=== PATIENT | female | born 1940 | race Caucasian/White ===

== ENCOUNTER 2019-08-21 11:10 | Outpatient (CLI) | payer MEDICARE, OTHER, SELFPAY ==
--- NOTE | ~2019-08-21 | XR_ITS ---
EXAMINATION: XR chest 2V EXAM DATE: 08/21/2019 11:34 INDICATION: Pneumonia. TECHNIQUE: Frontal and lateral projections of the chest obtained and reviewed. Comparison is made to prior examination from 08/05/2019. FINDINGS: There is interval improvement in the right upper lobe airspace disease, now has some resid ual linear opacities most likely atelectasis. Consider additional one-month follow-up chest x-ray. Th ere is chronic severe hyperinflation. There is no pneumothorax suspected. There are no pleural effusi ons. Cardiomediastinal silhouette is normal. Suspicion of right rotator cuff calcific tendinosis. Pro minent right anterior epicardial fat pad. IMPRESSION: 1. Improving right upper lobe airspace disease with some residual linear opacities likely atelectasi s. Consider additional one-month follow-up chest x-ray. 2. Chronic hyperinflation. Reviewed, dictated and finalized at location B. ERIOLOGY TEACHER IMPRESSION: 1. Improving right upper lobe airspace disease with some residual linear opaci ties likely atelectasis. Consider additional one-month follow-up chest x-ray. 2. Chronic hyperinflation.
== END 2019-08-21 11:11 | disposition home or self-care (01) ==
LOC: ANHIMG 11:19
PROVIDERS: PCP Family Medicine; Visit Provider Nurse Practitioner
DX: J18.9 Pneumonia, unspecified organism (principal); R91.8 Other nonspecific abnormal finding of lung field
CPT/HCPCS: 71046

== ENCOUNTER 2019-08-28 10:04 | Outpatient (CLI) | payer MEDICARE, OTHER, SELFPAY ==
[2019-08-28 10:41] LABS: CRP < 0.5 mg/dL (<1.0)
[2019-08-28 12:50] LABS: Erythrocyte Sedimentation Rate 19 mm/hr (0-20)
== END 2019-08-28 10:05 | disposition home or self-care (01) ==
PROVIDERS: PCP Family Medicine
DX: M35.3 Polymyalgia rheumatica (principal)
CPT/HCPCS: 36415; 85652; 86140

== ENCOUNTER 2019-09-04 09:20 | Outpatient (CLI) | payer MEDICARE, OTHER, SELFPAY ==
--- NOTE | ~2019-09-04 | MM_ITS ---
EXAMINATION: MM screening tere BI w maxime HISTORY: Screening mammogram TECHNIQUE: Craniocaudal and mediolateral oblique 3-D tomosynthesis images were obtained and synthetic 2-D images were generated. CAD analysis was submitted and interpreted. COMPARISON: Comparison to multiple prior studies sequentially, with oldest reviewed study dated 01/02. BREAST PARENCHYMAL COMPOSITION: The breasts are heterogenously dense, which may obscure small masses FINDINGS: The right breast is stable without evidence for malignancy. There is a new mass in the uppe r outer quadrant of the left breast. IMPRESSION: 1. New left breast mass. 2. Additional mammographic views and possible breast ultrasound are recommended. BI-RADS Category 0: Incomplete: Needs additional imaging evaluation. Reviewed, dictated and finalized at location A. R INCIDENT RESPONDER IMPRESSION: 1. New left breast mass. 2. Additional mammographic views and possible breast ultrasound are recommended . BI-RADS Category 0: Incomplete: Needs additional imaging evaluation.
== END 2019-09-04 09:21 | disposition home or self-care (01) ==
LOC: ANHIMG 09:23
PROVIDERS: PCP Family Medicine; Visit Provider Family Medicine
DX: Z12.31 Encounter for screening mammogram for malignant neoplasm of breast (principal); R92.8 Other abnormal and inconclusive findings on diagnostic imaging of breast
CPT/HCPCS: 77063; 77067

== ENCOUNTER 2019-09-18 08:04 | Outpatient (CLI) | payer MEDICARE, OTHER, SELFPAY ==
--- NOTE | ~2019-09-18 | XR_ITS ---
EXAMINATION: XR chest 2V 09/18/2019 08:22 INDICATION: Dyspnea. PROCEDURE: 2 view chest COMPARISON: 08/21/2019 FINDINGS: The lungs are clear. The cardiomediastinal silhouette is within normal limits. There are no pleural effusions. There is no pneumothorax suspected. IMPRESSION: 1: NO ACUTE CARDIOPULMONARY DISEASE. Reviewed, dictated and finalized at location A.
== END 2019-09-18 08:05 | disposition home or self-care (01) ==
PROVIDERS: PCP Family Medicine; Visit Provider Family Medicine
DX: R93.89 Abnormal findings on diagnostic imaging of other specified body structures (principal)
CPT/HCPCS: 71046

== ENCOUNTER 2019-10-02 11:30 | Outpatient (CLI) | payer MEDICARE, OTHER, SELFPAY ==
--- NOTE | ~2019-10-02 | MMUS_ITS ---
EXAMINATION: MM diagnostic mammo unilat LT, US breast LT limited HISTORY: Left breast mass reported on 09/04/2019 screening mammogram TECHNIQUE: Additional 3-D tomosynthesis images of the left breast were performed and synthetic 2-D im ages were generated. CAD analysis was submitted and interpreted. High resolution upper outer and lowe r-outer left breast ultrasound was performed. COMPARISON: 09/04/2019 bilateral digital screening mammogram FINDINGS: MAMMOGRAPHIC FINDINGS: There is an approximately 2 cm area of ill-defined asymmetric increased density and suggestion of ass ociated architectural distortion in the posterior aspect of the mid to upper outer left breast. ULTRASOUND: At 2:00 location 7 cm from nipple, there is a very irregular antiparallel at least 2.4 cm transverse dimension and 2.8 cm depth heterogeneous solid mass with internal vascularity, highly suggestive of m alignancy. The lesion has an apple core configuration, with broad margins superficially and at depth, with narrower dimensions centrally. Ultrasound-guided biopsy is recommended. IMPRESSION: 1. At least 2.4 x 2.8 cm heterogeneous irregular solid mass with internal vascularity at 2:00 7 cm fr om nipple, highly suggestive of malignancy 2. Ultrasound-guided biopsy is recommended. BI-RADS category 5, highly suggestive of malignancy. Appropriate action should be taken Dr. Bowles left a voicemail message for Systems Manager Cate Avery indicating the BIRADS 5 repo rt and recommendation for ultrasound guided biopsy of the left breast on 10/02/2019 at 1307 hours. Reviewed, dictated and finalized at location A. IMPRESSION: 1. At least 2.4 x 2.8 cm heterogeneous irregular solid mass with internal vascu larity at 2:00 7 cm from nipple, highly suggestive of malignancy 2. Ultrasound-guided biopsy is recommended. BI-RADS category 5, highly suggestive of malignancy. Appropriate action should be taken Dr. Bowles left a voicemail message for Systems Manager Cate crawford ting the BIRADS 5 report and recommendation for ultrasound guided biopsy of the left breast on 10/02/2019 at 1307 hours. IMPRESSION: 1. At least 2.4 x 2.8 cm heterogeneous irregular solid mass with internal vascu larity at 2:00 7 cm from nipple, highly suggestive of malignancy 2. Ultrasound-guided biopsy is recommended. BI-RADS category 5, highly suggestive of malignancy. Appropriate action should be taken Dr. Bowles left a voicemail message for Systems Manager Cate crawford tinpino the BIRADS 5 report and recommendation for ultrasound guided biopsy of the left breast on 10/02/2019 at 1307 hours.
== END 2019-10-02 11:31 | disposition home or self-care (01) ==
LOC: ANHIMG 11:44
PROVIDERS: PCP Family Medicine; Visit Provider Family Medicine
DX: R92.8 Other abnormal and inconclusive findings on diagnostic imaging of breast (principal)
CPT/HCPCS: 76642; 77065

== ENCOUNTER 2019-10-11 09:16 | Outpatient (CLI) | payer MEDICARE, OTHER, SELFPAY ==
--- NOTE | ~2019-10-11 | MMUS_ITS ---
EXAMINATION: US breast biopsy LT w image, MM post biopsy invasive LT DATE: 10/11/2019 11:46 (accession [id number]), 10/11/2019 10:53 (accession [id number]) INDICATION: Left breast mass. Ultrasound-guided core biopsy is requested to evaluate for malignancy. TECHNIQUE AND FINDINGS: The risks and potential benefits of the procedure were discussed with the patient including bleeding and infection. A time out was performed. The skin of the left breast was prepared and draped in usual sterile fashion. 1% lidocaine was used for superficial anesthesia. 1% lidocaine with epinephrine was used for deep anesthesia. A vacuum-assisted biopsy gun needle was advanced through to the outer edge of the region of interest from a lateral approach utilizing sonographic guidance. A total of three tissue core samples were obt ained through the lesion. A tissue marker clip was then placed at the biopsy site. Hemostasis was ach ieved. A sterile bandage was applied. The patient tolerated procedure well and there was no evidence of immediate complication. The patient was given verbal instructions to return to the Emergency Department in the event of severe breast pa in or rapid breast enlargement. A two view left breast mammogram was obtained to document tissue coty er clip placement. IMPRESSION: 1. Successful ultrasound-guided vacuum-assisted biopsy of left breast mass with tissue marker placeme nt. Reviewed, dictated and finalized at location A. IMPRESSION: 1. Successful ultrasound-guided vacuum-assisted biopsy of left breast mass with tissue marker placement.
== END 2019-10-11 09:17 | disposition home or self-care (01) ==
PROVIDERS: PCP Family Medicine; Visit Provider Nurse Practitioner
DX: N63.22 Unspecified lump in the left breast, upper inner quadrant (principal); C50.912 Malignant neoplasm of unspecified site of left female breast
CPT/HCPCS: 19083; 88305; 88342

== ENCOUNTER 2020-05-08 16:07 | Outpatient (CLI) | payer MEDICARE, OTHER, SELFPAY ==
--- NOTE | ~2020-05-08 | XR_ITS ---
EXAMINATION: XR shoulder RT min 2V DATE: 05/08/2020 16:38 INDICATION: Right shoulder pain. TECHNIQUE: 5 views of right shoulder were obtained. COMPARISON: None. FINDINGS: Bone alignment is normal. No fracture. There is mild osteoarthritis of glenohumeral joint. The acromioclavicular joint is normal. There is calcific tendinitis of the rotator cuff. IMPRESSION: 1. Mild glenohumeral joint osteoarthritis. 2. Calcific tendinitis of the rotator cuff. Reviewed, dictated and finalized at location A.
== END 2020-05-08 16:08 | disposition home or self-care (01) ==
PROVIDERS: PCP Family Medicine
DX: M25.511 Pain in right shoulder (principal); M19.011 Primary osteoarthritis, right shoulder; M75.31 Calcific tendinitis of right shoulder
CPT/HCPCS: 73030

== ENCOUNTER 2020-08-01 10:43 | Outpatient (CLI) | payer MEDICARE, OTHER, SELFPAY ==
[2020-08-01 11:16] LABS: Basophils Percent Auto 0.6 % (0.2-1.2); Eosinophils Absolute Auto 0.2 K/mm3 (0-0.3); Eosinophils Percent Auto 2.8 % (0-4.4); Hematocrit 41.1 % (37.0-47.0); Hemoglobin 13.3 g/dL (12.0-15.0); Immature Granulocyte Absolute 0.02 K/mm3 (0.00-0.031); Immature Granulocyte Percent A 0.3 % (0-0.5); Lymphocytes Absolute Auto 1.59 K/mm3 (0.9-3.2); Lymphocytes Percent Auto 23.8 % (18.3-44.2); Mean Corpuscular HGB Conc 32.4 g/dl (32-36); Mean Corpuscular Volume 92.8 fl (80-100); Mean Platelet Volume 10.1 fl (7.4-10.4); Monocytes Absolute Auto 0.6 K/mm3 (0.1-0.6); Monocytes Percent Auto 8.7 % (2.6-8.5); Neutrophils Absolute Auto 4.3 K/mm3 (1.3-6.7); Neutrophils Percent Auto 63.8 % (45.5-73.1); Platelet Count Result 237 k/mm3 (150-375); Red Blood Count 4.43 M/mm3 (4.2-5.4); Red Cell Distribution Width 12.7 % (11.5-14.5); White Blood Count 6.7 K/mm3 (4.5-10.0)
[2020-08-01 11:24] LABS: Hemoglobin A1C 5.6 % (<5.7)
[2020-08-01 11:28] LABS: Alanine Aminotransferase 21 U/L (4-35); Albumin Level 4.2 g/dL (3.5-5.1); Alkaline Phosphatase 66 U/L (38-126); Anion Gap 2 mmol/L (8-16); Aspartate Amino Transferase 27 U/L (14-36); Bilirubin,Total 0.3 mg/dL (0.2-1.3); Blood Urea Nitrogen 17 mg/dL (7-17); Calcium 9.5 mg/dL (8.4-10.2); Carbon Dioxide 35 mmol/L (22-30); Chloride 103 mmol/L (98-107); Cholesterol 207 mg/dL (0-200); Estimated Glomerular Filt Rate > 60; Glucose 108 mg/dL (65-105); HDL Direct 85 mg/dL; Potassium 5.6 mmol/L (3.4-5.0); Sodium 140 mmol/L (137-145); Triglycerides 134 mg/dL (<150)
[2020-08-01 11:40] LABS: LDL Cholesterol Direct 93 mg/dL
[2020-08-01 12:09] LABS: Vitamin D 25 Hydroxy 46.2 ng/mL
[2020-08-01 12:22] LABS: Thyroid Stimulating Hormone Reflex 0.025 uIU/mL (0.465-4.68)
[2020-08-01 13:15] LABS: Free T4 Free Thyroxine Reflex 1.15 ng/dL (0.78-2.19)
[2020-08-01 14:18] LABS: Total Triiodothyronine (T3) 1.29 NG/ML (0.97-1.69)
== END 2020-08-01 10:44 | disposition home or self-care (01) ==
LOC: ANHLAB 10:45
PROVIDERS: PCP Family Medicine; Visit Provider Nurse Practitioner
DX: E78.00 Pure hypercholesterolemia, unspecified (principal); R73.9 Hyperglycemia, unspecified; E78.2 Mixed hyperlipidemia; E78.5 Hyperlipidemia, unspecified; E53.8 Deficiency of other specified B group vitamins; E03.9 Hypothyroidism, unspecified; E55.9 Vitamin D deficiency, unspecified
CPT/HCPCS: 36415; 80053; 80061; 82306; 82607; 83036; 84439; 84443; 84480; 85025

== ENCOUNTER 2020-10-30 09:35 | Outpatient (CLI) | payer MEDICARE, OTHER, SELFPAY ==
[2020-10-30 09:55] LABS: Potassium 4.1 mmol/L (3.4-5.0)
[2020-10-30 10:55] LABS: Thyroid Stimulating Hormone Reflex < 0.015 uIU/mL (0.465-4.68)
[2020-10-30 11:29] LABS: Free T4 Free Thyroxine Reflex 1.36 ng/dL (0.78-2.19)
[2020-10-30 12:29] LABS: Total Triiodothyronine (T3) 1.46 NG/ML (0.97-1.69)
== END 2020-10-30 09:36 | disposition home or self-care (01) ==
LOC: ANHLAB 09:38
PROVIDERS: PCP Family Medicine; Visit Provider Nurse Practitioner
DX: E87.5 Hyperkalemia (principal); E03.9 Hypothyroidism, unspecified
CPT/HCPCS: 36415; 84132; 84439; 84443; 84480

== ENCOUNTER 2020-12-12 09:03 | Outpatient (CLI) | payer MEDICARE, OTHER, SELFPAY ==
[2020-12-12 10:08] LABS: CRP 1.9 mg/dL (<1.0)
[2020-12-12 10:23] LABS: T4 Thyroxine 7.59 ug/dL (5.53-11.0)
[2020-12-12 11:02] LABS: Erythrocyte Sedimentation Rate 49 mm/hr (0-20)
[2020-12-15 08:46] LABS: Triiodothyronine T3 Free 2.3 pg/mL (2.3-4.2)
== END 2020-12-12 09:04 | disposition home or self-care (01) ==
PROVIDERS: PCP Family Medicine; Referring Provider Internal Medicine; Visit Provider Nurse Practitioner
DX: E03.9 Hypothyroidism, unspecified (principal); M35.3 Polymyalgia rheumatica
CPT/HCPCS: 36415; 84436; 84443; 84481; 85652; 86140

== ENCOUNTER 2021-09-08 07:14 | Outpatient (CLI) | payer MEDICARE, OTHER, SELFPAY ==
[2021-09-08 07:42] LABS: Basophils Percent Auto 0.4 % (0.2-1.2); Eosinophils Absolute Auto 0.1 K/mm3 (0-0.3); Eosinophils Percent Auto 1.3 % (0-4.4); Hematocrit 41.3 % (37.0-47.0); Hemoglobin 13.4 g/dL (12.0-15.0); Immature Granulocyte Absolute 0.01 K/mm3 (0.00-0.031); Immature Granulocyte Percent A 0.1 % (0-0.5); Lymphocytes Absolute Auto 1.83 K/mm3 (0.9-3.2); Lymphocytes Percent Auto 26.4 % (18.3-44.2); Mean Corpuscular HGB Conc 32.4 g/dl (32-36); Mean Corpuscular Hemoglobin 29.6 pg (26-34); Mean Corpuscular Volume 91.2 fl (80-100); Mean Platelet Volume 9.8 fl (7.4-10.4); Monocytes Absolute Auto 0.6 K/mm3 (0.1-0.6); Monocytes Percent Auto 8.9 % (2.6-8.5); Neutrophils Absolute Auto 4.4 K/mm3 (1.3-6.7); Neutrophils Percent Auto 62.9 % (45.5-73.1); Platelet Count Result 216 k/mm3 (150-375); Red Blood Count 4.53 M/mm3 (4.2-5.4); Red Cell Distribution Width 12.8 % (11.5-14.5); White Blood Count 6.9 K/mm3 (4.5-10.0)
[2021-09-08 07:52] LABS: Alanine Aminotransferase 18 U/L (4-35); Albumin Level 4.4 g/dL (3.5-5.1); Alkaline Phosphatase 79 U/L (38-126); Anion Gap 5 mmol/L (8-16); Aspartate Amino Transferase 27 U/L (14-36); Bilirubin,Total 0.6 mg/dL (0.2-1.3); Blood Urea Nitrogen 22 mg/dL (7-17); Calcium 8.9 mg/dL (8.4-10.2); Carbon Dioxide 33 mmol/L (22-30); Chloride 103 mmol/L (98-107); Cholesterol 249 mg/dL (0-200); Estimated Glomerular Filt Rate > 60; Glucose 107 mg/dL (65-110); HDL Direct 84 mg/dL; Potassium 4.3 mmol/L (3.4-5.0); Sodium 141 mmol/L (137-145); Triglycerides 69 mg/dL (<150)
[2021-09-08 08:02] LABS: LDL Cholesterol Direct 104 mg/dL
[2021-09-08 08:08] LABS: Vitamin D 25 Hydroxy 53.7 ng/mL
[2021-09-08 09:11] LABS: Free T4 Free Thyroxine Reflex 1.05 ng/dL (0.78-2.19)
== END 2021-09-08 07:15 | disposition home or self-care (01) ==
PROVIDERS: PCP Family Medicine; Visit Provider Nurse Practitioner
DX: E78.2 Mixed hyperlipidemia (principal); E55.9 Vitamin D deficiency, unspecified; E03.9 Hypothyroidism, unspecified
CPT/HCPCS: 36415; 80053; 80061; 82306; 84439; 84443; 84480; 85025

== ENCOUNTER 2021-11-24 11:32 | Outpatient (CLI) | payer MEDICARE, OTHER, SELFPAY ==
[2021-11-24 13:54] LABS: Free T4 Free Thyroxine Reflex 1.23 ng/dL (0.78-2.19)
[2021-11-24 14:46] LABS: Total Triiodothyronine (T3) 1.49 NG/ML (0.97-1.69)
== END 2021-11-24 11:33 | disposition home or self-care (01) ==
LOC: ANHLAB 11:35
PROVIDERS: PCP Family Medicine; Visit Provider Nurse Practitioner
DX: E03.9 Hypothyroidism, unspecified (principal)
CPT/HCPCS: 36415; 84439; 84443; 84480

== ENCOUNTER → 2022-03-06 11:17 | Outpatient (CLI) | payer MEDICARE, OTHER, SELFPAY ==
--- NOTE | ~2022-03-06 | US_ITS ---
EXAMINATION: US thyroid DATE: 03/06/2022 11:42 INDICATION: Nontoxic goiter TECHNIQUE: Multiple ultrasound images of the thyroid were obtained. COMPARISON: None. FINDINGS: The right thyroid lobe measures 2.6 x 0.7 x 0.7 cm. The left thyroid lobe measures 1.4 x 0.6 x 0.7 c m. Thyroid isthmus measures 2 mm in thickness. No discrete nodules identified. There is diffuse heter ogeneous increased echogenicity and coarsened echotexture throughout the thyroid. IMPRESSION: 1. Small diffusely heterogeneous and coarsely echogenic thyroid likely sequela of chronic thyroiditis . Reviewed, dictated and finalized at location A. IMPRESSION: 1. Small diffusely heterogeneous and coarsely echogenic thyroid likely sequela of chronic thyroiditis.
== END ==
PROVIDERS: PCP Family Medicine; Visit Provider Nurse Practitioner
DX: E04.9 Nontoxic goiter, unspecified (principal)
CPT/HCPCS: 76536

== ENCOUNTER 2022-03-06 11:45 | Outpatient (CLI) | payer MEDICARE, OTHER, SELFPAY ==
[2022-03-06 12:20] LABS: Alanine Aminotransferase 14 U/L (6-35); Albumin Level 4.4 g/dL (3.5-5.1); Alkaline Phosphatase 75 U/L (38-126); Anion Gap 5 mmol/L (8-16); Aspartate Amino Transferase 22 U/L (14-36); Bilirubin,Total 0.4 mg/dL (0.2-1.3); Blood Urea Nitrogen 23 mg/dL (7-17); Calcium 9.2 mg/dL (8.4-10.2); Carbon Dioxide 33 mmol/L (22-30); Chloride 99 mmol/L (98-107); Cholesterol 206 mg/dL (0-200); Estimated Glomerular Filt Rate > 60; Glucose 82 mg/dL (65-110); HDL Direct 92 mg/dL; Potassium 4.2 mmol/L (3.4-5.0); Sodium 137 mmol/L (137-145); Triglycerides 66 mg/dL (<150)
[2022-03-06 12:24] LABS: Basophils Absolute Auto 0.1 K/mm3 (0.0-0.1); Basophils Percent Auto 0.9 % (0.2-1.2); Eosinophils Absolute Auto 0.2 K/mm3 (0-0.3); Eosinophils Percent Auto 3.4 % (0-4.4); Hemoglobin 12.6 g/dL (12.0-15.0); Immature Granulocyte Absolute 0.01 K/mm3 (0.00-0.031); Immature Granulocyte Percent A 0.2 % (0-0.5); Lymphocytes Absolute Auto 1.64 K/mm3 (0.9-3.2); Lymphocytes Percent Auto 29.5 % (18.3-44.2); Mean Corpuscular HGB Conc 31.5 g/dl (32-36); Mean Corpuscular Hemoglobin 29.3 pg (26-34); Mean Platelet Volume 10.2 fl (7.4-10.4); Monocytes Absolute Auto 0.6 K/mm3 (0.1-0.6); Monocytes Percent Auto 11.2 % (2.6-8.5); Neutrophils Absolute Auto 3.1 K/mm3 (1.3-6.7); Neutrophils Percent Auto 54.8 % (45.5-73.1); Platelet Count Result 221 k/mm3 (150-375); Red Cell Distribution Width 12.5 % (11.5-14.5); White Blood Count 5.6 K/mm3 (4.5-10.0)
[2022-03-06 12:27] LABS: LDL Cholesterol Direct 76 mg/dL
[2022-03-06 12:39] LABS: Vitamin D 25 Hydroxy 49.6 ng/mL
[2022-03-06 12:52] LABS: Thyroid Stimulating Hormone Reflex 0.076 uIU/mL (0.465-4.68)
[2022-03-06 15:39] LABS: Free T4 Free Thyroxine Reflex 1.38 ng/dL (0.78-2.19)
[2022-03-06 17:49] LABS: Total Triiodothyronine (T3) 1.47 NG/ML (0.97-1.69)
== END 2022-03-06 11:46 | disposition home or self-care (01) ==
LOC: ANHLAB 11:47
PROVIDERS: PCP Family Medicine; Visit Provider Nurse Practitioner
DX: E55.9 Vitamin D deficiency, unspecified (principal); E03.9 Hypothyroidism, unspecified; E78.2 Mixed hyperlipidemia
CPT/HCPCS: 36415; 80053; 80061; 82306; 84439; 84443; 84480; 85025

== ENCOUNTER 2022-05-07 11:40 | Outpatient (CLI) | payer MEDICARE, OTHER, SELFPAY ==
[2022-05-07 12:54] LABS: Thyroid Stimulating Hormone Reflex 0.858 uIU/mL (0.465-4.68)
== END 2022-05-07 11:41 | disposition home or self-care (01) ==
LOC: ANHLAB 11:40
PROVIDERS: PCP Family Medicine; Visit Provider Nurse Practitioner
DX: E03.9 Hypothyroidism, unspecified (principal)
CPT/HCPCS: 36415; 84443

== ENCOUNTER 2022-06-03 10:35 | Emergency (ER) | payer MEDICARE, OTHER, SELFPAY ==
--- NOTE | ~2022-06-03 | XR_ITS ---
XR chest 2V 06/03/2022 11:27 Indication: Productive cough with shortness of breath Procedure: 2 view chest Comparison: 09/18/2019 Findings: Heart size normal. No focal air space disease, pulmonary edema, pleural effusion or suspect ed pneumothorax. Impression: 1: No acute cardiopulmonary disease. Reviewed, dictated and finalized at location B. IONHOLDER INFORMATION CLERK Impression: 1: No acute cardiopulmonary disease.
[2022-06-03 10:53] VITALS: BP 137/80; PULSE 116; RESP 18; TEMP 36.4; O2SAT 98
--- NOTE | 2022-06-03 11:13 | ED.URI ---
HPI - URI/Sore Throat General Chief Complaint: Upper Respiratory Infection Stated Complaint: chest congestion, drainage, sore throat, cough Time Seen by Provider: 06/03/22 11:13 Source: patient Mode of arrival: ambulatory Limitations: no limitations History of Present Illness HPI Narrative: 82-year-old female presents with complaint of nasal congestion, postnasal drainage, sore throat, cough for 3 days. Afebrile. Taking Serena-Rowe cold and Sinus to treat symptoms. Today feels generalized weakness, mild shortness breath with exertion. History of pneumonia 2 years ago. Would like chest x-ray. All systems reviewed and negative except as noted above. Related Data Home Medications Medication Instructions Recorded Confirmed multivitamin 1 tablet PO DAILY 10/12/19 06/03/22 calcium carbonate 600 mg-vitamin 1 cap PO DAILY 04/16/20 06/03/22 D3 12.5 mcg (500 unit) capsule (Calcium 600 with Vitamin D3) biotin 5,000 mcg disintegrating 10,000 mcg PO DAILY 05/22/22 06/03/22 tablet venlafaxine 75 mg capsule,extended 75 mg PO DAILY 05/22/22 06/03/22 release 24 hr (Effexor XR) Allergies Allergy/AdvReac Type Severity Reaction Status Date / Time No Known Allergies Allergy Mild Verified 06/03/22 10:51 Review of Systems Review of Systems: CONSTITUTIONAL: Denies fever, chills, or sweats. Reports fatigue. EYES: Denies visual changes, redness, or discharge. ENT: Reports rhinorrhea, congestion, sore throat. Denies otalgia. CARDIOVASCULAR: Denies chest pain, palpitations, or edema. RESPIRATORY: reports cough. Denies dyspnea. GASTROINTESTINAL: Denies abdominal pain, nausea, vomiting, or diarrhea. GENITOURINARY: Denies dysuria or hematuria. SKIN: Denies rash or itching. MUSCULOSKELETAL: Denies back pain, joint pain, or myalgia. NEUROLOGIC: Denies headache, numbness, or weakness. PSYCHIATRIC: Denies anxiety or depression. All other systems reviewed are negative, except as documented in HPI. [facility] Past Medical History Medical History Anxiety Arthritis Bilateral cataracts Depression Diverticulosis Hiatal hernia History of breast cancer 10/2019 History of radiation therapy Hypothyroidism IBS (irritable bowel syndrome) Invasive ductal carcinoma of left breast Pneumonia (~08/05/19) Polymyalgia Surgical History Surgical History History of orthopedic surgery S/P breast lumpectomy 11/02/2019 Family History Family History Father Hypertension Mother Hypertension Family history of malignant neoplasm of cervix Family history of thyroid disease Family history of osteoporosis Sibling Cerebrovascular accident Grandparent Family history of malignant neoplasm of uterus Other Diabetes mellitus Family history of malignant neoplasm of breast in first degree relative Social History Social History Smoking status: Never smoker Second hand tobacco smoke exposure: No Alcohol intake: current Alcohol use details: Wine socially Substance use: never Additional living arrangements comments: Gender identity (if verbalized by the patient): Female Comments At time of signature, agree with nursing past medical, surgical, social and family history. There is no relevant family history pertinent to the presenting complaint. Exam Narrative: GENERAL: This is a well-nourished, well-developed patient, in no apparent distress. HEAD: normocephalic, atraumatic. EYES: PERRL. Sclera clear/white. Vision is grossly intact. EARS: External ears normal, auditory canals clear and without drainage, TMs normal without perforation. Hearing grossly intact. NOSE: External nose normal with clear nasal drainage, mild erythema to nares with mild congestion. THROAT: Mucous membranes moist, po
== END 2022-06-03 11:49 | disposition home or self-care (01) ==
PROVIDERS: Emergency Provider Nurse Practitioner Family; PCP Family Medicine
DX: J06.9 Acute upper respiratory infection, unspecified (principal); M19.90 Unspecified osteoarthritis, unspecified site; E03.9 Hypothyroidism, unspecified; F41.9 Anxiety disorder, unspecified; F32.A Depression, unspecified; Z85.3 Personal history of malignant neoplasm of breast
CPT/HCPCS: 71046; 87804; 99213; G0463

== ENCOUNTER 2022-08-01 11:02 | Emergency (ER) | payer MEDICARE, OTHER, SELFPAY ==
--- NOTE | ~2022-08-01 | XR_ITS ---
EXAMINATION: XR finger 3rd RT min 2V DATE: 08/01/2022 11:34 INDICATION: Right hand third digit pain and swelling. TECHNIQUE: 4 views of right hand third digit were obtained. COMPARISON: Right hand radiographs 06/23/2017 FINDINGS: There is an avulsion fracture of dorsal base of third distal phalanx with 3 mm distraction. There is hyperextension of third proximal interphalangeal joint and flexion of third distal interpha langeal joint. There is mild osteoarthritis of third proximal and distal interphalangeal joints and m etacarpophalangeal joint. IMPRESSION: 1. Avulsion fracture of dorsal base of third distal phalanx. 2. Polyarticular osteoarthritis. Reviewed, dictated and finalized at location A. HAT FLANGER
[2022-08-01 11:22] VITALS: BP 140/61; PULSE 111; RESP 18; TEMP 36.6; O2SAT 97
--- NOTE | 2022-08-01 11:37 | ED.UPPEXIN ---
HPI - Extremity Injury (Upper) General Chief Complaint: Extremity Injury, Upper Stated Complaint: Middle Finger Rt Hand Time Seen by Provider: 08/01/22 11:30 Source: patient Mode of arrival: ambulatory Limitations: no limitations History of Present Illness HPI narrative: Ms. Price is an 82-year-old female patient presenting to clinic today with complaints of left eye drainage and soreness as well as a right 3rd finger injury. She reports she fell approximately 2 weeks ago and jammed her 3rd finger and re-injured it yesterday when filing some paperwork she twisted it. States that she has had some left eye drainage and her eye has been matting shut and she has redness in her left eye. Related Data Home Medications Medication Instructions Recorded Confirmed multivitamin 1 tablet PO DAILY 10/12/19 08/01/22 calcium carbonate 600 mg-vitamin 1 cap PO DAILY 04/16/20 08/01/22 D3 12.5 mcg (500 unit) capsule (Calcium 600 with Vitamin D3) biotin 5,000 mcg disintegrating 10,000 mcg PO DAILY 05/22/22 08/01/22 tablet venlafaxine 75 mg capsule,extended 75 mg PO DAILY 05/22/22 08/01/22 release 24 hr (Effexor XR) Allergies Allergy/AdvReac Type Severity Reaction Status Date / Time No Known Allergies Allergy Mild Verified 08/01/22 11:40 Review of Systems Review of Systems: Pertinent positives per HPI. Patient denies any fever, chills, rash, headache, visual changes, dizziness, cough, runny nose, sore throat, shortness of breath, chest pain, palpitations, nausea, vomiting, diarrhea, constipation, abdominal pain, or any urinary issues. [facility] Past Medical History Medical History Anxiety Arthritis Bilateral cataracts Depression Diverticulosis Hiatal hernia History of breast cancer 10/2019 History of radiation therapy Hypothyroidism IBS (irritable bowel syndrome) Invasive ductal carcinoma of left breast Pneumonia (~08/05/19) Polymyalgia Surgical History Surgical History History of orthopedic surgery S/P breast lumpectomy 11/02/2019 Family History Family History Father Hypertension Mother Hypertension Family history of malignant neoplasm of cervix Family history of thyroid disease Family history of osteoporosis Sibling Cerebrovascular accident Grandparent Family history of malignant neoplasm of uterus Other Diabetes mellitus Family history of malignant neoplasm of breast in first degree relative Social History Social History Smoking status: Never smoker Second hand tobacco smoke exposure: No Alcohol intake: current Alcohol use details: Wine socially Substance use: never Living arrangements: with family Additional living arrangements comments: Occupation/Education: retired Gender identity (if verbalized by the patient): Female Comments At the time of my signature, I reviewed and agree with the nursing past medical, surgical, social, and family history. There is no relevant family history pertinent to the patient complaint. Exam Narrative: General: Well-developed, well nourished, in no apparent distress Head: Normocephalic, atraumatic Eyes: Pupils equally round and reactive to light bilaterally, EOM intact, right sclera and conjunctive clear, left sclera and conjunctiva injected with yellow discharge coming from the left eye, lids normal Ears: TMs intact and clear, ear canals clear, no drainage, grossly hearing normal. Nose: Nares patent, no discharge, no inflammation, no sinus tenderness. Mouth: Oropharynx without lesions or masses, good dentition, MMM. Neck: Supple, trachea midline, no enlargement of anterior or posterior cervical nodes, no thyroid masses or goiter palpable. Cardio: Regular rate and rhythm, s1 and s2
== END 2022-08-01 12:05 | disposition home or self-care (01) ==
PROVIDERS: Emergency Provider Nurse Practitioner Family; PCP Family Medicine
DX: S62.632A Displaced fracture of distal phalanx of right middle finger, initial encounter for closed fracture (principal); X50.9XXA Other and unspecified overexertion or strenuous movements or postures, initial encounter; H10.9 Unspecified conjunctivitis; F41.9 Anxiety disorder, unspecified; M19.90 Unspecified osteoarthritis, unspecified site; F32.A Depression, unspecified; E03.9 Hypothyroidism, unspecified; Z85.3 Personal history of malignant neoplasm of breast
CPT/HCPCS: 29130; 73140; 99214; G0463

== ENCOUNTER 2022-09-02 14:11 | Outpatient (CLI) | payer MEDICARE, OTHER, SELFPAY ==
[2022-09-02 18:52] LABS: Alanine Aminotransferase 22 U/L (6-35); Albumin Level 4.8 g/dL (3.5-5.1); Alkaline Phosphatase 86 U/L (38-126); Anion Gap 8 mmol/L (8-16); Aspartate Amino Transferase 29 U/L (14-36); Bilirubin,Total 0.4 mg/dL (0.2-1.3); Blood Urea Nitrogen 23 mg/dL (7-17); Calcium 9.4 mg/dL (8.4-10.2); Carbon Dioxide 29 mmol/L (22-30); Chloride 101 mmol/L (98-107); Estimated Glomerular Filt Rate > 60; Glucose 88 mg/dL (65-110); Potassium 4.3 mmol/L (3.4-5.0); Sodium 138 mmol/L (137-145)
[2022-09-02 19:04] LABS: Basophils Absolute Auto 0.1 K/mm3 (0.0-0.1); Basophils Percent Auto 0.7 % (0.2-1.2); Eosinophils Absolute Auto 0.1 K/mm3 (0-0.3); Eosinophils Percent Auto 1.8 % (0-4.4); Hematocrit 42.5 % (37.0-47.0); Hemoglobin 13.5 g/dL (12.0-15.0); Immature Granulocyte Absolute 0.02 K/mm3 (0.00-0.031); Immature Granulocyte Percent A 0.3 % (0-0.5); Lymphocytes Absolute Auto 1.99 K/mm3 (0.9-3.2); Lymphocytes Percent Auto 27.4 % (18.3-44.2); Mean Corpuscular HGB Conc 31.8 g/dl (32-36); Mean Corpuscular Hemoglobin 29.3 pg (26-34); Mean Corpuscular Volume 92.2 fl (80-100); Mean Platelet Volume 10.8 fl (7.4-10.4); Monocytes Absolute Auto 0.6 K/mm3 (0.1-0.6); Monocytes Percent Auto 8.3 % (2.6-8.5); Neutrophils Absolute Auto 4.5 K/mm3 (1.3-6.7); Neutrophils Percent Auto 61.5 % (45.5-73.1); Platelet Count Result 205 k/mm3 (150-375); Red Blood Count 4.61 M/mm3 (4.2-5.4); Red Cell Distribution Width 13.6 % (11.5-14.5); White Blood Count 7.3 K/mm3 (4.5-10.0)
[2022-09-02 19:15] LABS: Hemoglobin A1C 5.5 % (<5.7)
[2022-09-02 19:23] LABS: Thyroid Stimulating Hormone 0.558 uIU/mL (0.465-4.680)
== END 2022-09-02 14:12 | disposition home or self-care (01) ==
LOC: ANHGOSHLAB 14:14
PROVIDERS: PCP Family Medicine; Visit Provider Nurse Practitioner
DX: E03.9 Hypothyroidism, unspecified (principal); Z13.6 Encounter for screening for cardiovascular disorders; R73.9 Hyperglycemia, unspecified; R53.83 Other fatigue
CPT/HCPCS: 36415; 80053; 83036; 84443; 85025

== ENCOUNTER → 2022-09-08 12:54 | Outpatient (CLI) | payer MEDICARE, OTHER, SELFPAY ==
--- NOTE | ~2022-09-08 | CT_ITS ---
Non-contrast Head CT History: Dizziness Technique: Axial non-contrast imaging of the brain was performed. Dose reduction technique was used on this scan by utilizing automated exposure control and iterative reconstruction technique. The dose -length product (DLP) was 599.57 mGy-cm. Findings: There is no evidence of intracranial hemorrhage, mass lesion, or acute infarct. Brain par enchyma appears normal. The ventricles and subarachnoid spaces are normal in size. The calvarium ap pears normal. The visualized paranasal sinuses and mastoid air cells are clear. Impression: No significant abnormality seen. Reviewed, dictated and finalized at location . C T TECH Impression: No significant abnormality seen.
== END ==
PROVIDERS: PCP Nurse Practitioner; Visit Provider Nurse Practitioner
DX: R55 Syncope and collapse (principal); R42 Dizziness and giddiness
CPT/HCPCS: 70450

== ENCOUNTER 2022-10-09 06:45 | Outpatient (CLI) | payer MEDICARE, OTHER, SELFPAY ==
[2022-10-09 10:39] LABS: Free T4 Free Thyroxine 1.22 ng/mL (0.78-2.19)
[2022-10-13 02:58] LABS: Thyroid Peroxidase Antibodies 7 IU/mL (<9)
== END 2022-10-09 06:46 | disposition home or self-care (01) ==
LOC: ANHOUTPT 06:46
PROVIDERS: PCP Nurse Practitioner; Visit Provider Internal Medicine
DX: R55 Syncope and collapse (principal); R42 Dizziness and giddiness
CPT/HCPCS: 36415; 82533; 84439; 84443; 86376; 96372; J0834

== ENCOUNTER 2022-12-28 08:53 | Outpatient (CLI) | payer MEDICARE, OTHER, SELFPAY ==
[2022-12-28 10:51] LABS: Free T4 Free Thyroxine 1.58 ng/mL (0.78-2.19)
[2022-12-28 11:05] LABS: Thyroid Stimulating Hormone 0.407 uIU/mL (0.465-4.680)
== END 2022-12-28 08:54 | disposition home or self-care (01) ==
PROVIDERS: PCP Family Medicine; Visit Provider Internal Medicine
DX: E03.9 Hypothyroidism, unspecified (principal); F32.9 Major depressive disorder, single episode, unspecified
CPT/HCPCS: 36415; 84439; 84443

== ENCOUNTER 2023-03-01 10:10 | Outpatient (CLI) | payer MEDICARE, OTHER, SELFPAY ==
[2023-03-01 11:16] LABS: Free T4 Free Thyroxine 1.09 ng/mL (0.78-2.19)
== END 2023-03-01 10:11 | disposition home or self-care (01) ==
PROVIDERS: PCP Family Medicine; Visit Provider Internal Medicine
DX: F32.9 Major depressive disorder, single episode, unspecified (principal)
CPT/HCPCS: 36415; 84439; 84443

== ENCOUNTER 2023-04-05 07:29 | Outpatient (CLI) | payer MEDICARE, OTHER, SELFPAY ==
[2023-04-05 07:53] LABS: Basophils Percent Auto 0.7 % (0.2-1.2); Eosinophils Absolute Auto 0.3 K/mm3 (0-0.3); Eosinophils Percent Auto 4.9 % (0-4.4); Hemoglobin 13.9 g/dL (12.0-15.0); Immature Granulocyte Absolute 0.01 K/mm3 (0.00-0.031); Immature Granulocyte Percent A 0.2 % (0-0.5); Lymphocytes Absolute Auto 1.68 K/mm3 (0.9-3.2); Lymphocytes Percent Auto 28.7 % (18.3-44.2); Mean Corpuscular HGB Conc 31.6 g/dl (32-36); Mean Corpuscular Hemoglobin 29.3 pg (26-34); Mean Corpuscular Volume 92.6 fl (80-100); Mean Platelet Volume 9.9 fl (7.4-10.4); Monocytes Absolute Auto 0.5 K/mm3 (0.1-0.6); Neutrophils Absolute Auto 3.3 K/mm3 (1.3-6.7); Neutrophils Percent Auto 56.5 % (45.5-73.1); Platelet Count Result 235 k/mm3 (150-375); Red Blood Count 4.75 M/mm3 (4.2-5.4); Red Cell Distribution Width 12.6 % (11.5-14.5); White Blood Count 5.9 K/mm3 (4.5-10.0)
[2023-04-05 08:44] LABS: Vitamin D 25 Hydroxy 54.6 ng/mL
[2023-04-05 09:45] LABS: Alanine Aminotransferase 19 U/L (6-35); Albumin Level 4.6 g/dL (3.5-5.1); Alkaline Phosphatase 74 U/L (38-126); Anion Gap 3 mmol/L (8-16); Aspartate Amino Transferase 25 U/L (14-36); Bilirubin,Total 0.7 mg/dL (0.2-1.3); Blood Urea Nitrogen 23 mg/dL (7-17); Calcium 9.2 mg/dL (8.4-10.2); Carbon Dioxide 34 mmol/L (22-30); Chloride 100 mmol/L (98-107); Cholesterol 231 mg/dL (0-200); Estimated Glomerular Filt Rate > 60; Glucose 109 mg/dL (65-110); HDL Direct 91 mg/dL; Potassium 4.5 mmol/L (3.4-5.0); Sodium 137 mmol/L (137-145); Triglycerides 88 mg/dL (<150)
[2023-04-05 09:55] LABS: LDL Cholesterol Direct 97 mg/dL
== END 2023-04-05 07:30 | disposition home or self-care (01) ==
LOC: ANHLAB 07:30
PROVIDERS: PCP Family Medicine; Visit Provider Family Medicine
DX: F32.9 Major depressive disorder, single episode, unspecified (principal); R53.83 Other fatigue; K58.9 Irritable bowel syndrome, unspecified; F41.9 Anxiety disorder, unspecified; E78.5 Hyperlipidemia, unspecified; E03.9 Hypothyroidism, unspecified; E53.8 Deficiency of other specified B group vitamins; E55.9 Vitamin D deficiency, unspecified
CPT/HCPCS: 36415; 80053; 80061; 82306; 82607; 84443; 85025

== ENCOUNTER 2023-05-11 14:45 | Outpatient (CLI) | payer MEDICARE, OTHER, SELFPAY | END 2023-05-11 14:46 | disposition home or self-care (01) | PROVIDERS: PCP Family Medicine; Visit Provider Internal Medicine | DX: E03.9 Hypothyroidism, unspecified (principal) | CPT/HCPCS: 36415; 84439; 84443 ==

== ENCOUNTER 2023-10-07 11:11 | Outpatient (CLI) | payer MEDICARE, OTHER, SELFPAY ==
[2023-10-07 12:38] LABS: Thyroid Stimulating Hormone 0.472 uIU/mL (0.465-4.680)
[2023-10-07 12:51] LABS: Free T4 Free Thyroxine 1.21 ng/mL (0.78-2.19)
== END 2023-10-07 11:12 | disposition home or self-care (01) ==
PROVIDERS: PCP Family Medicine; Visit Provider Internal Medicine
DX: E03.9 Hypothyroidism, unspecified (principal); F32.9 Major depressive disorder, single episode, unspecified
CPT/HCPCS: 36415; 84439; 84443

== ENCOUNTER 2023-12-22 10:36 | Outpatient (CLI) | payer MEDICARE, OTHER, SELFPAY ==
[2023-12-22 11:49] LABS: Free T4 Free Thyroxine 1.49 ng/mL (0.78-2.19)
[2023-12-22 12:03] LABS: Thyroid Stimulating Hormone Reflex 0.232 uIU/mL (0.465-4.68)
[2023-12-22 12:45] LABS: Free T4 Free Thyroxine Reflex 1.46 ng/dL (0.78-2.19)
[2023-12-22 14:06] LABS: Total Triiodothyronine (T3) 1.34 NG/ML (0.97-1.69)
== END 2023-12-22 10:37 | disposition home or self-care (01) ==
PROVIDERS: PCP Family Medicine; Visit Provider Internal Medicine
DX: E03.9 Hypothyroidism, unspecified (principal); F32.9 Major depressive disorder, single episode, unspecified
CPT/HCPCS: 36415; 84439; 84443; 84480

== ENCOUNTER 2024-03-17 09:52 | Outpatient (CLI) | payer MEDICARE, OTHER, SELFPAY ==
[2024-03-17 11:21] LABS: Free T4 Free Thyroxine 1.13 ng/mL (0.78-2.19); Vitamin D 25 Hydroxy 51.3 ng/mL
== END 2024-03-17 09:53 | disposition home or self-care (01) ==
LOC: ANHLAB 10:02
PROVIDERS: PCP Family Medicine; Visit Provider Internal Medicine
DX: E03.9 Hypothyroidism, unspecified (principal); F32.9 Major depressive disorder, single episode, unspecified; Z79.899 Other long term (current) drug therapy
CPT/HCPCS: 36415; 82306; 84439; 84443

== ENCOUNTER 2024-03-30 07:33 | Outpatient (CLI) | payer MEDICARE, OTHER, SELFPAY ==
[2024-03-30 08:41] LABS: Basophils Percent Auto 0.6 % (0.2-1.2); Eosinophils Absolute Auto 0.2 K/mm3 (0-0.3); Eosinophils Percent Auto 2.9 % (0-4.4); Hematocrit 41.3 % (37.0-47.0); Hemoglobin 13.5 g/dL (12.0-15.0); Immature Granulocyte Absolute 0.01 K/mm3 (0.00-0.031); Immature Granulocyte Percent A 0.2 % (0-0.5); Lymphocytes Absolute Auto 1.23 K/mm3 (0.9-3.2); Mean Corpuscular HGB Conc 32.7 g/dl (32-36); Mean Corpuscular Hemoglobin 30.1 pg (26-34); Mean Platelet Volume 10.5 fl (7.4-10.4); Monocytes Absolute Auto 0.5 K/mm3 (0.1-0.6); Neutrophils Absolute Auto 3.3 K/mm3 (1.3-6.7); Neutrophils Percent Auto 63.3 % (45.5-73.1); Platelet Count Result 202 k/mm3 (150-375); Red Blood Count 4.49 M/mm3 (4.2-5.4); Red Cell Distribution Width 12.7 % (11.5-14.5); White Blood Count 5.1 K/mm3 (4.5-10.0)
[2024-03-30 08:52] LABS: Alanine Aminotransferase 15 U/L (6-35); Albumin Level 4.4 g/dL (3.5-5.1); Alkaline Phosphatase 62 U/L (38-126); Anion Gap 7 mmol/L (4-12); Aspartate Amino Transferase 22 U/L (14-36); Bilirubin,Total 0.6 mg/dL (0.2-1.3); Blood Urea Nitrogen 16 mg/dL (7-17); CRP < 0.5 mg/dL (<1.0); Calcium 9.2 mg/dL (8.4-10.2); Carbon Dioxide 29 mmol/L (22-30); Chloride 100 mmol/L (98-107); Cholesterol 196 mg/dL (0-200); Estimated Glomerular Filt Rate > 60; Glucose 101 mg/dL (65-110); HDL Direct 90 mg/dL; Potassium 4.3 mmol/L (3.4-5.0); Sodium 136 mmol/L (137-145); Triglycerides 67 mg/dL (<150)
[2024-03-30 09:01] LABS: LDL Cholesterol Direct 79 mg/dL
[2024-03-30 10:47] LABS: Erythrocyte Sedimentation Rate 16 mm/hr (0-20)
[2024-03-30 11:23] LABS: Hemoglobin A1C 5.9 % (<5.7)
== END 2024-03-30 07:34 | disposition home or self-care (01) ==
PROVIDERS: PCP Family Medicine; Visit Provider Family Medicine
DX: E53.8 Deficiency of other specified B group vitamins (principal); E78.5 Hyperlipidemia, unspecified; E16.2 Hypoglycemia, unspecified; M35.3 Polymyalgia rheumatica; I10 Essential (primary) hypertension; F32.9 Major depressive disorder, single episode, unspecified; F41.9 Anxiety disorder, unspecified; E03.9 Hypothyroidism, unspecified; E78.2 Mixed hyperlipidemia
CPT/HCPCS: 36415; 80053; 80061; 82607; 83036; 85025; 85652; 86140

== ENCOUNTER 2024-06-28 08:15 | Outpatient (RCR) | payer MEDICARE, OTHER, SELFPAY ==
--- NOTE | 2024-06-22 10:06 | OTOPEVAL1 ---
Assessment and note entered by Shawn Lima, TERESA/Alek, CHT OT Evaluation Information 06/22/24 Assessment Status Evaluation Diagnosis Pain in right hand, Pain in left hand Subjective Information Patient reports experiencing pain and numbness in her right and left hands. Right is worse than left . She reports the tingling is progressively getting worse. She reports symptoms are worse at night, wakes up in the middle of the night and is up for a hour trying to reposition to get comfortable. She has tried ice at night and it helps. She has a right wrist brace that she wears at night. She reports her symptoms a relieved throughout the day when she's up and moving. Hobbies include doing puzzles. Pain with wrapping [employer] gifts, holding and using her tooth brush with the right hand, gripping and pronating the forearm. Unable to do yard work right now - enjoys raking and yard work. Reported Pain Level Pain Score 4: Self Report Additional Pain Score Comments At night she experiences 10/10 pain. In the morning her pain is usually 4/10. Throughout the day the pain subsides to 0/10. Assessment OT Clinical Summary Patient referred to OT with dx of pain in bilateral hands. Patient presents with symptoms consistent with OA pain in her fingers and median nerve compression at the elbow. Patient reporting paresthesia in the thumb, index, middle, and ring fingers. She reports pain and paresthesia also in the palm/thenar eminence, which is indicative of more proximal median nerve compression than just the carpal tunnel, symptoms are consistent with compression at the pronator teres also. Patient has pain and tenderness with soft tissue mobilization at the medial elbow/common flexor origin. Issued self massage, median nerve glides, and tendon glides for HEP. Continued follow up indicated for use of thermal modalities, soft tissue mobilization, therapeutic exercise, strengthening, and HEP progression to facilitate reduced pain, improved flexibility, reduced nerve compression to return to prior level of function. Plan of Care Interventions Therapeutic Exercise,Manual Therapy,Neuro Re- education,Therapeutic Activities,Hot Pack/Cold Pack,Check Out for Orthotic/Prosthetic,Ultrasound, Paraffin OT Services Indicated Yes Treatment Frequency and 2x/week for 8 visits Duration These treatments will address the objective and functional deficits as defined above. The patient will be advanced safely and appropriately in order for the patient to progress towards his/her prior level of function. Additional exercises will be introduced and as well as a comprehensive home exercise program upon discharge, if needed, ?to ensure carryover of functional gains achieved in the clinic. This treatment plan has been reviewed and agreement upon by the patient.
--- NOTE | 2024-06-22 10:07 | OPREHPOC ---
Outpatient Therapy Plan of Care This is a Multidisciplinary Plan of Care that may contain components documented by all disciplines (PT, OT, and ST.) OT Problem 1 OT Problem #1 Knowledge Deficit OT Goal 1 Goal / Goal Update Patient to be independent with instructed materials. OT Problem 2 OT Problem #2 Pain OT Goal 1 Goal / Goal Update Patient to report no instances of 10/10 pain at night. Target Visit 8 OT Goal 2 Goal / Goal Update Patient to be independent with non-medication pain management: - heat/ice - ROM - rest Target Visit 8 OT Problem 3 OT Problem #3 Impaired Sensation OT Goal 1 Goal / Goal Update Patient to report reduced paresthesia in bilateral hands. Target Visit 8 OT Problem 4 OT Problem #4 Impaired Strength OT Goal 1 Goal / Goal Update To return to prior level of functioning with IADLs : Patient to be able to complete bilateral elbow, forearm, wrist, and hand strengthening program without pain. Target Visit 8
--- NOTE | 2024-06-29 14:05 | PCOTNOTE ---
Patient called & cancelled scheduled appointment this date. Patient is having to much pain 10/10. Patient sounds anxious over the phone and expressed her anxiety. Patient reported it started when she was working in the kitchen and it has not stopped. Patient reports she is unable to move her hands/finger and that only ice has been able to relieve her pain. Patient was educated on limitations of Ice and heat. Also, to check the skin during even if it feels good not to burn the skin or cause harm. Patient stated she has contacted her MD and is waiting on a call back.
--- NOTE | 2024-08-21 11:55 | OTOPDC ---
Assessment and note entered by Shawn Lima, TERESA/Alek, CHT OT Discharge Summary 08/21/24 OT Clinical Summary - Patient referred to OT with dx of pain in bilateral hands. Patient presents with symptoms consistent with OA pain in her fingers and median nerve compression at the elbow. - She attended the initial evaluation on 06/22/24 and 1 follow up appointment. She cancelled the remaining appointments due to pain. We recommended that she contact her MD. We have not heard back from her. - Discharging OT with goals not addressed.
== END 2024-08-25 12:34 | disposition home or self-care (01) ==
LOC: ANHOT 08:15
PROVIDERS: PCP Family Medicine; Visit Provider Family Medicine
DX: M25.541 Pain in joints of right hand (principal); M25.542 Pain in joints of left hand
CPT/HCPCS: 97018; 97110; 97140; 97166

== ENCOUNTER 2024-08-01 09:32 | Outpatient (CLI) | payer MEDICARE, OTHER, SELFPAY ==
--- NOTE | 2024-08-01 11:15 | NEURO_ITS ---
Impression: # Borderline diabetic complains of numbness of hands. ? # Bilateral Carpal Tunnel Syndrome, left more than right and sensory more than motor. ? # No ulnar neuropathy. ? # Mildly abnormal Needle/EMG exam. Nerve Conduction Studies Anti Sensory Summary Table ?Stim Site NR Peak (ms) P-T Amp (?V) Site1 Site2 Delta-P (ms) Dist (cm) Castro (m/s) Left Median Anti Sensory (2-3nd Digit) Wrist ? 4.4 43.5 Wrist 2-3nd Digit 4.4 14.0 32 Wrist ? 4.5 36.7 Wrist 2-3nd Digit 4.4 14.0 32 Right Median Anti Sensory (2-3nd Digit) Wrist ? 5.8 20.1 Wrist 2-3nd Digit 5.8 14.0 24 Wrist ? 6.2 21.9 Wrist 2-3nd Digit 5.8 14.0 24 Left Radial Anti Sensory (Base 1st Digit) Wrist ? 2.8 33.8 Wrist Base 1st Digit 2.8 0.0 Right Radial Anti Sensory (Base 1st Digit) Wrist ? 2.3 9.3 Wrist Base 1st Digit 2.3 0.0 Left Ulnar Anti Sensory (5th Digit) Wrist ? 3.0 24.7 Wrist 5th Digit 3.0 14.0 47 Right Ulnar Anti Sensory (5th Digit) Wrist ? 3.3 29.4 Wrist 5th Digit 3.3 14.0 42 Motor Summary Table ?Stim Site NR Onset (ms) O-P Amp (mV) Site1 Site2 Delta-0 (ms) Dist (cm) Castro (m/s) Left Median Motor (Abd Poll Brev) Wrist ? 5.4 2.9 Elbow Wrist 4.4 26.0 59 Elbow ? 9.8 3.7 Right Median Motor (Abd Poll Brev) Wrist ? 3.8 3.8 Elbow Wrist 4.7 27.0 57 Elbow ? 8.5 3.6 Left Ulnar Motor (Abd Dig Minimi) Wrist ? 2.8 7.3 A Elbow Wrist 5.3 30.0 57 A Elbow ? 8.1 5.6 Right Ulnar Motor (Abd Dig Minimi) Wrist ? 2.7 7.4 A Elbow Wrist 4.7 27.0 57 A Elbow ? 7.4 6.2 F Wave Studies ?NR F-Lat (ms) L-R F-Lat (ms) Left Median (Mrkrs) (Abd Poll Brev) ? 29.12 0.35 Right Median (Mrkrs) (Abd Poll Brev) ? 28.77 0.35 Left Ulnar (Mrkrs) (Abd Dig Min) ? 29.12 0.29 Right Ulnar (Mrkrs) (Abd Dig Min) ? 28.83 0.29 EMG ?Side Muscle Nerve Root Ins Act Fibs Amp Dur Recrt Comment Right 1stDorInt Ulnar C8-T1 Nml Nml Nml Nml Nml Right Ext Indicis Radial (Post Int) C7-8 Nml Nml Nml Nml Nml Right Ext Digitorum Radial (Post Int) C7-8 Nml Nml Nml Nml Nml Right BrachioRad Radial C5-6 Nml Nml Nml Nml Nml Right PronatorTeres Median C6-7 Nml Nml Nml Nml Nml Right Abd Poll Brev Median C8-T1 Nml Nml Nml Nml +1 Right ABD Dig Min Ulnar C8-T1 Nml Nml Nml Nml Nml Left 1stDorInt Ulnar C8-T1 Nml Nml Nml Nml Nml Left Ext Indicis Radial (Post Int) C7-8 Nml Nml Nml Nml Nml Left Ext Digitorum Radial (Post Int) C7-8 Nml Nml Nml Nml Nml Left BrachioRad Radial C5-6 Nml Nml Nml Nml Nml Left PronatorTeres Median C6-7 Nml Nml Nml Nml Nml Left Abd Poll Brev Median C8-T1 Nml Nml Nml Nml +1 Left ABD Dig Min Ulnar C8-T1 Nml Nml Nml Nml Nml MTDD
--- OUTSIDE RECORDS SUMMARY | 2024-08-03 16:51 | XMS_ITS | Clinical Summary ---
Author Organization [facility] Address [address] [place] [address]. [place] [address] [place] [address] Care Team Providers Care Trades Helper Name Role Phone Unavailable Primary Care Provider Unavailabl e Social History Tobacco Use Types Packs/Day Years Used Date Smoking Tobacco: Never Assessed Comments Unknown Sex and Gender Information Value Date Recorded Sex Assigned at Not on file Legal Sex Female 4:47 PM CDT Gender Identity Not on file Sexual Orientation Not on file Last Filed Vital Signs Vital Sign Reading Time Taken Comments Blood Pressure 118/64 12/04/2016 11:43 AM CDT Pulse 76 12/04/2016 11:43 AM CDT Temperature - - Respiratory Rate - - Oxygen Saturation - - Inhaled Oxygen Concentration - - Weight 65.3 kg (144 lb) 12/04/2016 11:43 AM CDT Height 170.2 cm (5' 7 ) 12/04/2016 11:43 AM CDT Body Mass Index 22.55 12/04/2016 11:43 AM CDT Plan of Treatment Health Maintenance Due Date Last Done Comments Dexa Scan (General) 2007 Pneumococcal Vaccine: 65+ Years (2 of 2 - PCV) 07/12/2008 07/12/2007 Zoster Vaccines (2 of 3) 09/06/2012 07/12/2012 RSV Immunization or 60+ Years (1 - 1-dose 75+ series) 2017 COVID-19 Vaccine ( - 2023-2 5 season) 2024 Influenza Adult (#1) 2024 04/18/2016, 04/05/2015 DTaP, Tdap and Td Vaccines ( 2 - Td or Tdap) 09/08/2025 09/09/2015 Meningococcal Vaccine Aged Out No oracio erna eligible based on patient's age to complete this topic RSV Immunizations Under 20 Months Aged Out No longer eligible b ased on patient's age to complete this topic
--- OUTSIDE RECORDS SUMMARY | 2024-08-03 16:51 | XMS_ITS | Clinical Summary ---
Author Organization [facility] Address [address] [place] [address] Care Team Providers Care Nursing Student Name Role Phone Jerman Knox MD Unavailable [phone] Al Wharton MD Unavailable [phone] [facility],non-owned Affiliates and Associated Physician Practices is amultiple site organization consisting of ambulatory clinics and hospital sitesin [place], [place], [place] and [place]. This disclosure is being madepursuant to the Care Everywhere program and may not contain all information available regarding this patient. Last updated 18.[facility] Allergies No known active allergies Medications * Be aware that medications may not be up to date on this document. Alwaysverify current medications with the patient. Medication Sig Dispensed Refills Start Date End Date Status levothyroxine (SYNTHROID) 100 MCG tablet Take 100 mcg by mouth daily before breakfast Active multivitamin daily (THERAGRAN) tablet Take 1 Tab by mouth daily with food Active ALPRAZolam (XANAX) 0.25 MG tablet Take 0.25 mg by mouth 3 times daily as needed for Anxiety Active diphenhydramine-APAP, sleep, (TYLENOL PM ES) 25-500 MG tablet Take 1 Tab by mouth nightly as needed for Insomnia Active calcium-vitamin D (CALTRATE PLUS D) 600-200 MG-UNIT tablet Take 1 Tab by mouth 2 times daily Active Misc Natural Products (GNP GLUCOSAMINE CHONDROIT TS PO) Take 1 Tab by mouth 2 times daily Glucosamine-chondro itin triple strength Active clobetasol (TEMOVATE) 0.05 % ointment 05/15/2015 Active Glucosamine-Chondroit in (GLUCOSAMINE CHONDR COMPLEX PO) Active Loperamide HCl (IMODIUM A-D PO) Active HYDROcodone-acetamino phen (NORCO) 7.5-325 MG tablet Take 1 Tab by mouth every 4 hours as needed for Pain 30 Tab 0 12/11/2015 Active Active Problems Problem Noted Date Diagnosed Date S/P left knee arthroscopy 12/18/2015 Tear of medial meniscus of knee 11/22/2015 Osteoarthrosis involving lower leg 02/04/2015 Overview (10/05/2015): 2015 IMO Updt Hypothyroid Reactive hypoglycemia Osteoporosis Immunizations Name Administration Dates Next Due INFLUENZA VACCINE, HIGH-DOSE , QUADR. (FLUZONE HIGH-DOSE QUADRIVALENT; 65Y+), 0.7 ML (HD-IIV4) 04/30/2020 Family History Medical History Relation Name Comments Cancer Mother Agricultural Appraiser Heart Disease Other Pacemaker Other Relation Name Status Comments Mother Other Social History Tobacco Use Types Packs/Day Years Used Date Smoking Tobacco: Never Alcohol Use Standard Drinks/Week Comments Yes 0 (1 standard drink = 0.6 oz pur e alcohol) Sex and Gender Information Value Date Recorded Sex Assigned at Not on file Gender Identity Not on file Sexual Orientation Not on file Last Filed Vital Signs Vital Sign Reading Time Taken Comments Blood Pressure 127/44 12/11/2015 2:22 PM CDT Pulse 63 12/11/2015 2:22 PM CDT Temperature 36.3 ??C (97.4 ??F) 12/11/2015 2:22 PM CD T Respiratory Rate 14 12/11/2015 2:22 PM CDT Oxygen Saturation 98% 12/11/2015 2:22 PM CDT Inhaled Oxygen Concentration - - Weight 63.2 kg (139 lb 6.4 oz) 12/11/2015 10:37 AM CDT Height 170.2 cm (5' 7 ) 12/11/2015 10:37 AM CDT Body Mass Index 21.83 12/11/2015 10:37 AM CDT Plan of Treatment Health Maintenance Due Date Last Done Comments BONE DENSITY TESTING 1942 MEDICARE AWV ? 12 MONTHS 1942 DTAP/TDAP/TD VACCINES (1 - Tdap) 1961 PNEUMOCOCCAL VACCINE 50+ (1 of 1 - PCV) 1992 ZOSTER VACCINE (1 of 2) 1992 Respiratory Syncytial Virus (RSV) Vaccine Pt: or over 60 yrs (1 - 1-dose 75+ series) 2017 COVID-19 VACCINE ( - 2023-2 5 season) 2024 INFLUENZA VACCINE (#1) 2024 04/30/2020 DEPRESSION SCREENING 07/12/2024 HEPATITIS B VACCINE Aged Out No longe r eligible based on patient's age to complete this topic HIB VACCINE Aged Out No longer eligi ble based on patient's age to complete this topic HPV VACCINE Aged Out No longer eligi ble based on patient's age to complete this topic MENINGOCOCCAL (Group B) VACCINE Aged Out No longer eligible based on patient's age to complete this topic MENINGOCOCCAL VACCINE Aged Out No oracio erna eligible based on patient's age to complete this topic Medical Devices Implanted Type Area Client Service Associate Device Identifier Shelf Expiration Date Model / Serial / Lot Marco Bone Woodburn Hv Implanted:Qty: 1 on 02/28/2015 by Jerman Knox MD at [facility] Right: [employer] 10/09/2016 [id number] / / [id number] Ty Tibial I Beam Fix Bar 71mm Implanted:Qty: 1 on 02/28/2015 by Jerman Knox MD at [facility] Right: [employer] 01/08/2025 [id number] / / [id number] Butn Pat Arcom Wire Polyeth Xsm 28 X 8 Implanted:Qty: 1 on 02/28/2015 by Jerman Knox MD at [facility] Right: [employer] 12/23/2019 [id number] / / [id number] Ins Kn Vangurd Fem Cocr R-Intlok 65.0mm Implanted:Qty: 1 on 02/28/2015 by Jerman Knox MD at [facility] Right: [employer] 01/08/2025 [id number] / / [id number] Brdg Tib Savannah Stbl Implanted:Qty: 1 on 02/28/2015 by Jerman Knox MD at [facility] Right: [employer] 12/22/2019 [id number] / / [id number] Advance Directives Documents on File Type Date Recorded Patient Hemodialysis Patient Care Specialist Expl anation Adv Directive/Living Will/POA 12/11/2015 10:05 AM POWER OF STRUCTURAL DESIGNER * Full Code (Latest Code Status on File) Date Activated Date Inactivated Comments 02/28/2015 12:02 PM 03/02/2015 4:27 PM Care Teams Nursing Student Relationship Specialty [place] [address] [place] [address] Orthopedic Surgery 02/04/15 [place] [address] [place] [address] Orthopedic Surgery 12/06/15
--- OUTSIDE RECORDS SUMMARY | 2024-08-03 16:51 | XMS_ITS | Referral Summary ---
Author Organization [facility] [employer] Address [address] [place] [address] Care Team Providers Care Bessemer Bottom Maker Name Role Phone Jerman Knox MD Unavailable [phone] Al Wharton MD Unavailable [phone] Source Comments [facility] [employer],non-owned Affiliates and Associated Physician Practices is amultiple site organization consisting of ambulatory clinics and hospital sitesin [place], [place], [place] and [place]. This disclosure is being madepursuant to the Care Everywhere program and may not contain all information available regarding this patient. Last updated 18.[facility] [employer] Allergies No known active allergies Medications * [...] HIGH-DOSE QUADRIVALENT; 65Y+), 0.7 ML (HD-IIV4) 04/30/2020 Social History Tobacco Use Types Packs/Day Years [...] Mass Index 21.83 12/11/2015 10:37 AM CDT Functional Status Functional Status Response Date of Assess ment Is person deaf or have serious hearing difficult y? No 12/11/2015 Is person blind or have serious difficulty seein g? No 12/11/2015 Does person have serious dif ficulty walking/climbing stairs? No 12/11/2015 Does person have difficulty dressing/bathing? No 12/11/2015 Does person have difficulty doing errands alone? No 12/11/2015 Cognitive Status Response Date of Assessm ent Does person have difficulty concentrating/remembering/making decisions? No 12/11/2015 Plan of Treatment Not on file Medical Devices Implanted Type Area Consumer Attorney Device Identifier Shelf Expiration Date Model / Serial / Lot Marco Bone [place] Hv Implanted:Qty: 1 on 02/28/2015 by Jerman Knox MD at [facility] Right: [employer] 10/09/2016 [id number] / / [id number] Ty Tibial I Beam Fix Bar 71mm Implanted:Qty: 1 on 02/28/2015 by Jerman Knox MD at [facility] Right: [employer] 01/08/2025 [id number] / / [id number] [place] Mirna Arcom Wire Polyeth Xsm 28 X 8 Implanted:Qty: 1 on 02/28/2015 by Jerman Knox MD at [facility] Right: [employer] 12/23/2019 [id number] / / [id number] Ins Kn Vangurd Fem Cocr R-Intlok 65.0mm Implanted:Qty: 1 on 02/28/2015 by Jerman Knox MD at [facility] Right: [employer] 01/08/2025 [id number] / / [id number] Brdg Tib Savannah Stbl Implanted:Qty: 1 on 02/28/2015 by Jerman Knox MD at [facility] Right: [employer] 12/22/2019 [id number] / / [id number] Advance Directives Documents on File Type Date Recorded Patient Integration Architect Expl anation Adv Directive/Living Will/POA 12/11/2015 10:05 AM POWER OF QUALITY ASSURANCE NURSE * Full Code (Latest Code Status on File) Date Activated Date Inactivated Comments 02/28/2015 12:02 PM 03/02/2015 4:27 PM Care Teams Bessemer Bottom Maker Relationship Specialty [place] [address] [place] [id number] Orthopedic Surgery 02/04/15 [place] [address] [place] [address] Orthopedic Surgery 12/06/15
--- OUTSIDE RECORDS SUMMARY | 2024-08-03 16:51 | XMS_ITS | Patient Health Summary ---
Author Organization [facility] [employer] Address [address] [place] [address] Care Team Providers Care Electrical Transmission Engineer Name Role Phone Jerman Knox MD Unavailable [phone] Al Wharton MD Unavailable [phone] Note from [facility],non-owned Affiliates and Associated Physician Practices is amultiple site organization consisting of ambulatory clinics and hospital sitesin [place], [place], [place] and [place]. This disclosure is being madepursuant to the Care Everywhere program and may not contain all information available regarding this patient. Last updated 18.[facility] Allergies No known active allergies Medications * Be aware that medications may not be up to date on this document. Alwaysverify current medications with the patient. * levothyroxine (SYNTHROID) 100 MCG tablet Take 100 mcg by mouth daily before breakfast * multivitamin daily (THERAGRAN) tablet Take 1 Tab by mouth daily with food * ALPRAZolam (XANAX) 0.25 MG tablet Take 0.25 mg by mouth 3 times daily as needed for Anxiety * diphenhydramine-APAP, sleep, (TYLENOL PM ES) 25-500 MG tablet Take 1 Tab by mouth nightly as needed for Insomnia * calcium-vitamin D (CALTRATE PLUS D) 600-200 MG-UNIT tablet Take 1 Tab by mouth 2 times daily * Misc Natural Products (GNP GLUCOSAMINE CHONDROIT TS PO) Take 1 Tab by mouth 2 times daily Glucosamine-chondroitin triple strength * clobetasol (TEMOVATE) 0.05 % ointment(Started 05/15/2015) * Glucosamine-Chondroitin (GLUCOSAMINE CHONDR COMPLEX PO) * Loperamide HCl (IMODIUM A-D PO) * HYDROcodone-acetaminophen (NORCO) 7.5-325 MG tablet(Started 12/11/2015) Take 1 Tab by mouth every 4 hours as needed for Pain Active Problems Problem Noted Date Diagnosed Date S/P left knee arthroscopy 12/18/2015 Tear of medial meniscus of knee 11/22/2015 Osteoarthrosis involving lower leg 02/04/2015 Hypothyroid Reactive hypoglycemia Osteoporosis Immunizations * INFLUENZA VACCINE, HIGH-DOSE, QUADR. (FLUZONE HIGH-DOSE QUADRIVALENT; 65Y+), 0.7 ML (HD-IIV4)(Given 04/30/2020) Social History Tobacco Use Types Packs/Day Years [...] Mass Index 21.83 12/11/2015 10:37 AM CDT Medical Devices Implanted Type Area Biometrics Technician Device Identifier Shelf Expiration Date Model / Serial / Lot Marco Bone [place] Hv Implanted:Qty: 1 on 02/28/2015 by Jerman Knox MD at [facility] Right: [employer] 10/09/2016 [id number] / / [id number] Ty Tibial I Beam Fix Bar 71mm Implanted:Qty: 1 on 02/28/2015 by Jerman Knox MD at [facility] Right: [employer] 01/08/2025 [id number] / / [id number] Suhas Bradley Arcom Wire Polyeth Xsm 28 X 8 Implanted:Qty: 1 on 02/28/2015 by Jerman Knox MD at [facility] Right: [employer] 12/23/2019 [id number] / / [id number] Ins Kn [place] Fem Cocr R-Intlok 65.0mm Implanted:Qty: 1 on 02/28/2015 by Jerman Knox MD at [facility] Right: [employer] 01/08/2025 [id number] / / [id number] Brdg Tib [place] Stbl Implanted:Qty: 1 on 02/28/2015 by Jerman Knox MD at [facility] Right: [employer] 12/22/2019 [id number] / / [id number] Procedures * XR KNEE RIGHT 3VW(Performed 02/24/2016) Performed for Primary osteoarthritis of right knee * LAB RESULTS ORDER(Performed 12/12/2015) * ARTHROSCOPY KNEE(Performed 12/11/2015) * EKG 12-LEAD(Performed 12/11/2015) Performed for Preop examination * MRI KNEE LEFT WO CONTRAST(Performed 11/13/2015) Performed for Chronic pain of left knee * XR KNEE LEFT 3VW(Performed 11/12/2015) Performed for Chronic pain of left knee * XR KNEE RIGHT 3VW(Performed 04/12/2015) Performed for Osteoarthrosis, unspecified whether generalized or localized, involving lower leg * HGB HCT PANEL(Performed 03/02/2015) * HGB HCT PANEL(Performed 03/01/2015) * ARTHROPLASTY TOTAL KNEE(Performed 02/28/2015) Performed for Osteoarthrosis, unspecified whether generalized or localized, lower leg * GLUCOSE - POINT OF CARE(Performed 02/28/2015) * NEURAXIAL BLOCK(Performed 02/28/2015) * COMPREHENSIVE METABOLIC PANEL(Performed 02/18/2015) Performed for Preop examination * CULTURE MSSA/MRSA(Performed 02/18/2015) Performed for Preop examination * CBC W AUTO DIFFERENTIAL(Performed 02/18/2015) Performed for Preop examination * EKG 12-LEAD(Performed 02/18/2015) Performed for Preop examination Results * XR KNEE 3 VW RIGHT (02/24/2016 3:47 PM CDT) Only the most recent of2 resultswithin the time period is included. Anatomical Region Laterality Modality Lower Extremity Radiographic Josefina ging Narrative 02/24/2016 4:21 PM CDT Yesi Vieyra, RT(R) ? 02/24/2016 ??4:21 PM See Chart For Xray Report Jerman Knox MD DIAGNOSTIC IMAGING O RDERABLES * LAB RESULTS ORDER (12/12/2015 9:14 PM CDT) Narrative 12/12/2015 9:14 PM CDT Ordered by an unspecified provider. Scanned Document LAB - THERAPEUTIC DR POSADA MONITORING ORDERABLES * EKG 12-LEAD (12/11/2015 10:02 AM CDT) Only the most recent of2 resultswithin the time period is included. Ventricular Rate 70 BPM [facility] Atrial Rate 70 BPM [facility] P-R Interval 132 ms [facility] QRS Duration ms 80 ms [facility] Q-T Interval ms 406 ms [facility] QTC Calculation (Bezet) 438 ms [facility] Calculated P [place] 64 degrees [facility] Calculated R [place] 7 degrees [facility] Calculated T [place] 62 degrees [facility] Interpretation EKG Normal sinus rhythm Normal ECG When compared with ECG of 18-FEB-2015 10:11, No significant change was found Confirmed by TAWNY CROCKETT, MONTY ([id number]) on 12/12/2015 10:03:19 AM [facility] 12/11/2015 10:0 2 AM CDT 12/12/2015 10:03 AM CDT Lewis Ortega MD ECG ORDERABL ES [facility] * MRI KNEE WO CONT LEFT (11/13/2015 2:54 PM CDT) Anatomical Region Laterality Modality Lower Extremity Magnetic Resonan ce 11/13/2015 3:15 PM CDT Impressions 11/13/2015 4:10 PM CDT Tricompartmental degenerative changes as above. Joint effusion. Small oblique tear in the posterior horn of the medial meniscus. Patellofemoral chondromalacia with superimposed 2 mm chondral tear involving the articular cartilage of the lateral patellar facet. Edited by Edith Auguste on 11/13/2015 3:58 PM Narrative 11/13/2015 4:10 PM CDT EXAM: MRI LEFT KNEE WITHOUT CONTRAST INDICATION: Left knee pain and swelling. TECHNIQUE: Multiplanar, multisequence magnetic resonance imaging of the knee performed without contrast. FINDINGS: There is chronic degradation of the medial and lateral menisci with superimposed oblique tear in the posterior horn of the medial meniscus. The anterior and posterior cruciate ligaments, medial and lateral collateral ligaments, quadriceps/patellar tendons are intact and unremarkable. There is no fracture, dislocation or marrow infiltrative process. 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 There is a tiny degenerative subcortical cyst (4 mm) in the medial aspect of the medial tibial plateau, adjacent to the tibial spine. A joint effusion is noted. There is a small focal chondral tear (2 mm) involving the articular cartilage of the lateral patellar facet. Procedure Note Jeffrey Quezada MD - 11/13/2015 EXAM: MRI LEFT KNEE WITHOUT CONTRAST INDICATION: Left knee pain and swelling. TECHNIQUE: Multiplanar, multisequence magnetic resonance imaging of the knee performed without contrast. FINDINGS: There is chronic degradation of the medial and lateral menisci with superimposed oblique tear in the posterior horn of the medial meniscus. The anterior and posterior cruciate ligaments, medial and lateral collateral ligaments, quadriceps/patellar tendons are intact and unremarkable. There is no fracture, dislocation or marrow infiltrative process. 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 There is a tiny degenerative subcortical cyst (4 mm) in the medial aspect of the medial tibial plateau, adjacent to the tibial spine. A joint effusion is noted. There is a small focal chondral tear (2 mm) involving the articular cartilage of the lateral patellar facet. IMPRESSION Tricompartmental degenerative changes as above. Joint effusion. Small oblique tear in the posterior horn of the medial meniscus. Patellofemoral chondromalacia with superimposed 2 mm chondral tear involving the articular cartilage of the lateral patellar facet. Edited by Edith Auguste on 11/13/2015 3:58 PM Jerman Knox MD MR ORDERABLES * XR KNEE 3 VW LEFT (11/12/2015 10:22 AM CDT) Anatomical Region Laterality Modality Lower Extremity Radiographic Josefina ging Narrative 11/12/2015 1:54 PM CDT Araceli Mckeon, RT(R) ? 11/12/2015 ??1:54 PM See progress notes for results Jerman Knox MD DIAGNOSTIC IMAGING O RDERABLES * (ABNORMAL) HGB HCT PANEL (03/02/2015 3:21 AM CDT) Only the most recent of2 resultswithin the time period is included. Hemoglobin 10.3(L) 12.0 - 15.6 gm/dL 03/02/2015 3:44 AM CDT [facility] Hematocrit 30.5(L) 35.9 - 45.5 % 03/02/2015 3:44 AM CDT [facility] Blood BLOOD SPECIMEN / Unknown 03/02/2015 3:21 AM CDT 03/02/2015 3:31 AM CDT Jerman Knox MD LAB - HEMATOLOGY ORD ERABLES Performing Organization Address City/[facility]/ZIP Co de Phone Number [facility] [address] [place], [place] [phone] * (ABNORMAL) GLUCOSE - POINT OF CARE (02/28/2015 12:47 PM CDT) Pathologist [facility] Glucose WB/POC 175(H) 70 - 106 mg/dL 02/28/2015 5:42 PM CDT [facility] Blood BLOOD SPECIMEN / Unknown 02/28/2015 12:47 PM CDT 02/28/2015 5:42 PM CDT Jerman Knox MD LAB - POINT OF CARE ORDERABLES Performing Organization Address City/[facility] Co de Phone Number [facility] [address] [place], [place] [phone] * NEURAXIAL BLOCK (02/28/2015 8:48 AM CDT) Narrative Laura Adames APRN-RESOURCING ADVISOR - 02/28/2015 8:48 AM CDT AGATHA Ellis ? 02/28/2015 ??8:48 AM NEURAXIAL BLOCK Patient Location: ??OR Pre Procedure Indication: ??surgical anesthesia Anticoagulation /Antithrombosis Status Confirmed: Yes Preanesthetic Checklist: ??patient identified, IV checked, site marked, risks and benefits discussed, surgical consent verified, monitors and equipment checked, pre-op evaluation done, timeout performed, informed consent obtained and questions answered / anesthesia plan accepted Monitors: ??BP and Pulse Ox Patient Condition: ??awake Patient Position: ??sitting Procedure Block Performed: ??spinal Prep: ??Betadine Sterile Field: ??sterile gloves, sterile field established, cap/hat and mask Approach: ??midline Skin Numbed with: ??lidocaine 1% Spinal Needle Type: ??pencil-point Needle Gauge: ??25 G Placement Site: ??L4-5 Number of Attempts: ??1 CSF: ??free flow and aspiration before injection Events CSF return injection not painful no paresthesia no other event Degree of Difficulty: ??none Position Post Procedure: ??supine Vital signs monitored and stable throughout. ??See Anesthesia Intraop record for details. Block Start Time: ??02/28/2015 8:25 AM Block Performed by: ??Zacarias RUIZ Laura Adames APRN-RESOURCING ADVISOR GENERAL ANESTHE ELEONORA ORDERABLES * CULTURE MSSA/MRSA (02/18/2015 10:26 AM CDT) Pathologist [facility] Culture Negative for MRSA/MSSA SARAH 02/19/2015 1:56 PM CDT [facility] MICROBIOLOGY Microbiology SPECIMEN FROM NASAL FOSSAE / Unknown 02/18/2015 10:26 AM CDT 02/18/2015 11:56 AM CDT Jerman Knox MD LAB - MICROBIOLOGY O RDERABLES [facility] MICROBIOLOGY [address] [place] [address], [facility] [phone] * (ABNORMAL) COMPREHENSIVE METABOLIC PANEL (02/18/2015 10:26 AM CDT) Pathologist [facility] Glucose 83 74 - 106 mg/dL 02/18/2015 12:18 PM CDT [facility] Sodium 142 136 - 145 mmol/L 02/18/2015 12:18 PM CDT [facility] Potassium 4.5 3.5 - 5.1 mmol/L 02/18/2015 12:18 PM CDT [facility] Chloride 104 98 - 107 mmol/L 02/18/2015 12:18 PM CDT [facility] CO2 32(H) 22 - 31 mmol/L 02/18/2015 12:18 PM CDT [facility] Calcium 8.9 8.5 - 10.1 mg/dL 02/18/2015 12:18 PM CDT [facility] Anion Gap 6 5 - 20 mmol/L 02/18/2015 12:18 PM CDT [facility] BUN 20 7 - 21 mg/dL 02/18/2015 12:18 PM CDT [facility] Creatinine 0.79 0.50 - 1.30 mg/dL 02/18/2015 12:18 PM CDT [facility] Alkaline Phosphatase 52 38 - 126 U/L 02/18/2015 12:18 PM CDT [facility] ALT 20 12 - 78 U/L 02/18/2015 12:18 PM CDT [facility] AST 11 5 - 40 U/L 02/18/2015 12:18 PM CDT [facility] Protein Total 7.3 6.4 - 8.2 gm/dL 02/18/2015 12:18 PM CDT [facility] Albumin 3.7 3.4 - 5.0 gm/dL 02/18/2015 12:18 PM CDT [facility] Bilirubin Total 0.5 0.2 - 1.0 mg/dL 02/18/2015 12:18 PM CDT [facility] eGFR by MDRD >60 mL/min/1.7 3m2 02/18/2015 12:18 PM CDT [facility] eGFR by MDRD >60 mL/min/1.7 3m2 02/18/2015 12:18 PM CDT [facility] Blood BLOOD SPECIMEN / Unknown 02/18/2015 10:26 AM CDT 02/18/2015 11:56 AM CDT Jerman Knox MD LAB - CHEMISTRY SHANTAL SLOAN [facility] Organization Address City/State/ZIP Co de Phone Number [facility] [address] [place] [address] * CBC W AUTO DIFFERENTIAL (02/18/2015 10:25 AM CDT) WBC 5.3 4.4 - 10.7 x10^9/L 02/18/2015 12:01 PM CDT [facility] WBC Corrected x10^9/L 02/18/2015 12:01 PM CDT [facility] RBC 4.49 3.80 - 5.20 x10^12/L 02/18/2015 12:01 PM CDT [facility] Hemoglobin 13.4 12.0 - 15.6 gm/dL 02/18/2015 12:01 PM CDT [facility] Hematocrit 39.7 35.9 - 45.5 % 02/18/2015 12:01 PM CDT [facility] MCV 88.4 80.7 - 98.3 fl 02/18/2015 12:01 PM CDT [facility] MCH 29.8 26.7 - 34.0 pg 02/18/2015 12:01 PM CDT [facility] MCHC 33.8 30.8 - 35.9 gm/dL 02/18/2015 12:01 PM CDT [facility] Platelet Count 201 153 - 416 x10^9/L 02/18/2015 12:01 PM CDT [facility] RDW-CV 12.3 12.1 - 14.9 % 02/18/2015 12:01 PM CDT [facility] MPV 10.8 9.4 - 12.9 fl 02/18/2015 12:01 PM CDT [facility] Neutrophils % 63.6 44.0 - 73.0 % 02/18/2015 12:01 PM CDT [facility] Lymphocytes % 25.8 20.0 - 43.0 % 02/18/2015 12:01 PM CDT [facility] Monocytes % 8.9 5.0 - 13.0 % 02/18/2015 12:01 PM CDT [facility] Eosinophils % 1.3 0.0 - 6.0 % 02/18/2015 12:01 PM CDT [facility] Basophils % 0.2 0.0 - 2.0 % 02/18/2015 12:01 PM CDT [facility] Immature Granulocytes 0.2 0 - 1 % 02/18/2015 12:01 PM CDT [facility] Neutrophil Absolute 3.38 2.01 - 7.14 x10^9/L 02/18/2015 12:01 PM CDT [facility] Lymphocytes Absolute 1.37 1.07 - 3.94 x10^9/L 02/18/2015 12:01 PM CDT [facility] Monocytes Absolute 0.47 0.26 - 1.07 x10^9/L 02/18/2015 12:01 PM CDT [facility] Eosinophils Absolute 0.07 0 - 0.47 x10^9/L 02/18/2015 12:01 PM CDT [facility] Basophils Absolute 0.01 0 - 0.08 x10^9/L 02/18/2015 12:01 PM CDT [facility] Immature Granulocytes Absolute 0.01 0.00 - 0.06 x10^9/L 02/18/2015 12:01 PM CDT [facility] Blood BLOOD SPECIMEN / Unknown 02/18/2015 10:25 AM CDT 02/18/2015 11:56 AM CDT Jerman Knox MD LAB - HEMATOLOGY ORD ERABLES [facility] [address] [place] [address] Care Teams Electrical Transmission Engineer Relationship Specialty [place] [address] [place] [address] Orthopedic Surgery 02/04/15 [place] [address] [facility] [address] [place] [address] Orthopedic Surgery 12/06/15
--- OUTSIDE RECORDS SUMMARY | 2024-08-03 16:51 | XMS_ITS | Encounter Summary ---
Author Organization [facility] Address [address] [place] [address] Care Team Providers Care Information Systems Director Name Role Phone Suma Guaman MD Primary Care Provider Jerman Knox MD Unavailable Al Wharton MD Unavailable Encounter Details Date Type Department Care Team (Late st Contact Info) Description 03/20/2015 Therapy Visit [facility] Orthopedics [address] [facility] [address] [place] [address] [place] [id number] [address] Social History Tobacco Use Types Packs/Day Years Used Date Smoking Tobacco: Never Alcohol Use Standard Drinks/Week Comments No 0 (1 standard drink = 0.6 oz pur e alcohol) Sex and Gender Information Value Date Recorded Sex Assigned at Not on file Gender Identity Not on file Sexual Orientation Not on file documented as of this encounter Functional Status Functional Status Response Date of Assess ment Is person deaf or have serious hearing difficult y? No 03/02/2015 Is person blind or have serious difficulty seein g? No 03/02/2015 Does person have serious dif ficulty walking/climbing stairs? No 03/02/2015 Does person have difficulty dressing/bathing? No 03/02/2015 Does person have difficulty doing errands alone? No 03/02/2015 Cognitive Status Response Date of Assessm ent Does person have difficulty concentrating/remembering/making decisions? No 03/02/2015 documented as of this encounter Plan of Treatment Not on file documented as of this encounter Visit Diagnoses Not on filedocumented in this encounter Care Teams Information Systems Director Relationship Specialty Start Date End Date Suma Guaman MD [address] [place] [address] [address] [place] [phone] PCP - General Family Medicine 12/31/14 11/12/15 [place] [address] [place] [id number] Orthopedic Surgery 02/04/15 [place] [address] [place] [address] Orthopedic Surgery 12/06/15 documented as of this encounter
--- OUTSIDE RECORDS SUMMARY | 2024-08-03 16:52 | XMS_ITS | Data Portability ---
Author Organization [place] [facility], Main Office Address [address] [place] [address] Care Team Providers Care Cane Weigher Helper Name Role Phone KAITLIN COTTER Primary Care Provider KAITLIN COTTER Referring Provider Assessment Encounter Date Assessment Date Assessment LastModified by Organization Details LastModified Time 09/11/2022 09/11/2022 patient returns. She is now 1 month after initiation of mobilization for bony mallet injury right long finger distal phalanx. She has been changing the splint frequently and has not been very compliant with for venting the D IP joint to flex while she is changing the splint. She had her hand up in the ER today without the splint on the show me that she still has about a 30 degree extension lag. She does not have PIP joint hyperextension fortunately. The skin is intact over the dorsum the D IP joint there is minimal tenderness are now no bony prominence. Passively the D IP joint fully extend still. I have reminded her that this will take 3-4 months to heal satisfactorily and that if she takes the splint off and allows the PIP joint been she is loss the healing that has occurred during the prior mobilization she will try to do a much better job at consistently always having someone else with the splint on for so she can keep her finger flat table during splint change. I reapplied the splint today. She had several questions about the bony fragment. She has a friend that and a piece of bone on the top of 1 of her toes that eventually had to be removed because it continued to cause skin breakdown I explained to her the difference in the situation removal of that fragment would be contraindicated and would lead to worsening swan-neck deformity as it is an extension of the distal slip of the extensor tendon. Also it is not prominent. It is a sliver runs parallel to the dorsum of the PIP joint. I will see her back in 6 weeks assess her progress. She will wear the splint full-time during this time venting the PIP joint from flexing when she retake as the splint. 20 minutes were spent total care this patient with more than half this time spent in [id number] care [email or web address] Not available 09/11/2022 09:54:00 10/23/2022 10/23/2022 HPI: Patient returns. She is 3 months out from her right long finger PIP bony mallet. She has been splinting finger. She has been going back in for worth from the stack splint to the aluminum foam splint. Physical exam patient's splint was removed today. There is no definite flexion at the IP joint. She is able hold fully extended. There was a good prominence on the dorsal aspect of the joint due to the osteoarthritis as well as the displaced bony mallet. Minimal tenderness to palpation. Impression: Patient has right long finger bony mallet appears to be scarring in. She is able to hold the the IP joint in in extension. She may start to wean out of the splint. Advised if she starts to notice the DIP joint is flexing again she may need to continue with the splint for a longer period of time. Patient had several questions about the osteoarthritis of the DIP joints in her hands. She does have severe osteoarthritis in almost everyone. I recommended she see Dr. Luke, for surgical options as far as fusion which I think would probably give her the best results. She is going to think about that. Otherwise we will plan on seeing her back as needed [email or web address] Not available 10/23/2022 09:58:58 Plan of Treatment Reminders Order Date Submit Date Provider Last Modified By Organization Details Last Modified Time Details Appointments None record ed. Lab None record ed. Referral None record ed. Procedures None record ed. Surgeries None record ed. Imaging XR, hand 023 10/24/19 23 [email or web address] [facility] [place], [address], [place], [address], 3 10:07:58 Medication Orders None record ed. Patient TargetsNo targets recorded. Patient InstructionsNo instructions recorded. Reason for Referral None Reported. Results Created Date Observation Date Name Description Value Unit Range Abnormal Flag Note LastModifiedBy Organization Detail LastModifiedTime 08/03/1908/01/2022 XR, finge r(s), 2 or more view No observ ation record ed. [id number] Not Available 09/09/2022 06:11:40 10/24/19 XR, hand No observ ation record ed. [email or web address] [facility] [place] [address], [place], [address], 10/23/2022 09:56:37 Result Notes None recorded. Problems Name Problem SNOMED Code Status Onset Date Resolution Date Notes Provider Name and Address Organization Details Recorded Time Disorder of uterus 79004638 Active Not Available [facility] 3 06:00:07 Extremely dense breast compositio n 810635332 Active Not Available [facility] 3 06:00:07 Osteoarthr itis of knee 948026346 Active Not Available [facility] 3 06:00:07 Headache 90373553 Active Not Available [facility] 3 06:00:07 Knee pain Active Not Available [facility] 3 06:00:07 Osteopenia 922759966 Active Not Available [facility] 3 06:00:07 Pain in right hand 5634773184497 09 Active 2022 Not Available [facility] 3 06:00:07 Vitamin D deficiency 14895561 Active Not Available [facility] 3 06:00:07 Depressive disorder 20807746 Active Not Available [facility] 3 06:00:08 Spider bite wound 466255330 Active Not Available [facility] 3 06:00:08 Hypothyroi dism 01116633 Active Not Available [facility] 3 06:00:08 Dupuytren' s disease 209908660 Active Not Available [facility] 3 06:00:08 Contractur e of palmar fascia 603258708 Active Not Available [facility] 3 06:00:08 Anxiety 95866099 Active Not Available [facility] 3 06:00:08 Hyperlipid emia 65187369 Active Not Available [facility] 3 06:00:08 Influenza 5605786 Active Not Available [facility] 3 06:00:08 Osteoporos is 66820538 Active Not Available [facility] 3 06:00:08 Granuloma annulare 02168496 Active Not Available [facility] 3 06:00:09 Hyperglyce aubrey 33028722 Active Not Available [facility] 3 06:00:09 Pernicious anemia 30332162 Active Not Available [facility] 3 06:00:09 Fatigue 55596119 Active Not Available [facility] 3 06:00:09 Problem Notes None recorded. Procedures Surgical History Date Name Laterality Status Provider Name and Address Organization Details Recorded Time lumpectomy of left breast completed Not Available [facility] 09/09/2022 05:53:40 partial meniscectomy of knee completed Not Available [facility] 09/09/2022 05:53:40 Knee Replacement completed Not Available [facility] 09/09/2022 05:53:40 Imaging Results Imaging Date Name Status LastModified by Organiz ation Details LastModified Time 08/01/2022 XR, finger(s), 2 or more view completed [id number] Information not available 09/09/2022 06:11:40 10/23/2022 XR, hand completed [email or web address] [facility] [place] [address], [place], [address], 10/23/2022 09:56:37 Procedure Notes None recorded. Medical Equipment None Reported. Medications Name Sig Start Date Stop Date Status Note LastModified by Organization Details LastModified Time promethaz ine-DM 6.25 mg-15 mg/5 mL oral syrup TAKE 5 ML BY MOUTH EVERY 4 TO 6 HOURS NEEDED FOR COUGH 09/11 completed Not Available Not Available Not Available venlafaxi ne ER 75 mg capsule,e xtended release 24 hr TAKE 1 CAPSULE BY MOUTH TWICE DAILY active Not Available Not Available No t Available loperamid e 2 mg capsule TAKE 1 CAPSULE BY MOUTH ONCE DAILY active Not Available Not Available No t Available oxybutyni n chloride ER 10 mg tablet,ex tended release 24 hr TAKE 1 TABLET BY MOUTH ONCE DAILY 09/11 completed Not Available Not Available Not Available benzonata te 200 mg capsule TAKE 1 CAPSULE BY MOUTH THREE TIMES DAILY NEEDED FOR COUGH 09/11 completed Not Available Not Available Not Available alendrona te 70 mg tablet Take 1 tablet every week by oral route. 08/01 completed pt. stopped taking in mar. Not Available Not Available Not Available Synthroid 100 mcg tablet TAKE 1 TABLET BY MOUTH ONCE DAILY active Not Available Not Available No t Available sertralin e 100 mg tablet active Not Available Not Available Not Available meclizine 12.5 mg tablet TAKE 1 TABLET BY MOUTH THREE TIMES DAILY NEEDED FOR DIZZINES S 10/23 completed Not Available Not Available Not Available Tamiflu 75 mg capsule Take 1 capsule twice a day by oral route. 08/01 completed Not Available Not Available Not Available sulfameth oxazole 800 mg-trimet hoprim 160 mg tablet active Not Available Not Available Not Available triamcino lone acetonide 0.1 % topical cream Apply 1 applicat ion twice a day by topical route. 09/11 completed Not Available Not Available Not Available Aleve 220 mg tablet prn 2014 active Not Available Not Available Not Avai lable Celebrex 200 mg capsule Take 1 capsule every day by oral route with meals. 09/11 completed Not Available Not Available Not Available alprazola m 0.25 mg tablet TAKE 1 TABLET BY MOUTH ONCE DAILY 10/23 completed Not Available Not Available Not Available Effexor XR 150 mg capsule,e xtended release Take 1 capsule every day by oral route as directed for 90 days. 09/10 completed Not Available Not Available Not Available Synthroid 88 mcg tablet TAKE 1 TABLET BY MOUTH ONCE DAILY 10/23 completed Not Available Not Available Not Available Synthroid 75 mcg tablet TAKE 1 TABLET BY MOUTH ONCE DAILY 09/11 completed Not Available Not Available Not Available Synthroid 112 mcg tablet TAKE 1 TABLET BY MOUTH EVERY DAY 08/01 completed Not Available Not Available Not Available clobetaso l 0.05 % topical ointment APPLY A THIN LAYER TO THE AFFECTED AREA(S) BY TOPICAL ROUTE 2 TIMES PER DAY active Not Available Not Available No t Available betametha sone dipropion ate 0.05 % topical ointment APPLY TOPICALL Y DAILY TO THE AFFECTED AREA active Not Available Not Available No t Available loratadin e 10 mg tablet TAKE 1 TABLET BY MOUTH ONCE DAILY active Not Available Not Available No t Available naproxen 500 mg tablet TAKE 1 TABLET BY MOUTH TWICE DAILY 09/11 completed Not Available Not Available Not Available tobramyci n 0.3 %-dexamet hasone 0.1 % eye drops,tiki pension INSTILL ONE DROP INTO LEFT EYE FOUR TIMES A DAY FOR 7 DAYS 09/11 completed Not Available Not Available Not Available nitrofura ntoin monohydra te/macroc rystals 100 mg capsule TAKE 1 CAPSULE BY MOUTH TWICE DAILY 09/11 completed Not Available Not Available Not Available B Complex 1 PO QD 08/03 completed Not Available Not Available Not Available multivita min 1 po qd 2014 active Not Available Not Available Not Avai lable Calcium 600 + D(3) 1 PO QD 2012 active Not Available Not Available Not Avai lable Zostavax (PF) 19,400 unit/0.65 mL subcutane ous suspensio n active Not Available Not Available Not Available Imodium Multi-Sym ptom Relief 1 tablet prn 09/11 completed Not Available Not Available Not Available ID NOW COVID-19 Test Kit TEST DIRECTED TODAY 10/23 completed Not Available Not Available Not Available Vitals Date Recorded Body mass index (BMI) Body height Body weight Provider Name and Address Organization Details Last Updated DateTime 08/03/2022 22.4 kg/m2 172.72 cm 09792.08 g Not Available [facility] 09/09/2022 05:54:15 Date Recorded Body height Provider Name an d Address Organization Details Last Updated DateTime 09/11/2022 172.72 cm MENDEZ Patricia [place] [facility] 09/11/2022 09:04:08 Date Recorded Body height Provider Name an d Address Organization Details Last Updated DateTime 10/23/2022 172.72 cm MENDEZ Patricia [place] [facility] 10/23/2022 09:04:01 Social History None recorded. Functional Status None recorded. Mental Status None recorded. Family History Relationship Description Onset Age of this Age Resolved Age Notes LastModified by Organization Details LastModified Time Father Heart disease [id number] Not available 09/09/2022 05:53:41 Mother Family history of malignant neoplasm [id number] Not available 09/09/2022 05:53:41 Mother Hypertensive disorder [id number] Not available 09/09/2022 05:53:41 Maternal Uncle Diabetes mellitus [id number] Not available 09/09/2022 05:53:41 Medical History Condition Response ARTHRITIS Y CANCER: SPECIFY Y Gynecological HistoryNo gynecological history recorded. Obstetrics History GPAL:G 0 P 0 0 0 0 Immunizations Vaccine Type Date Status Note Provider Nam e and Address Organization Details Recorded Time Influenza, split virus, trivalent, preservative 4 completed Not Available [facility] 09/09/2022 06:10:50 zoster live 3 completed Not Available [facility] 09/09/2022 06:10:50 pneumococcal conjugate PCV 7 8 completed Not Available [facility] 09/09/2022 06:10:50 Influenza, split virus, trivalent, preservative 3 completed Not Available [facility] 09/09/2022 06:10:51 Past Encounters Encounter ID Performer Location Encounter Start Date Encounter Closed Date Diagnosis/Indication Diagnosis SNOMED-CT Code Diagnosis ICD10 Code Diagnosis Note [id number] [facility] [place] [address] [place] [address] 08/03/2022 00:00:00 08/09/2022 12:40:45 [id number] Adan Flores MD [facility] [place] [address] [place] [address] 09/11/2022 08:56:35 09/11/2022 09:59:35 Pain in right hand 1561280998 54518 M79.641 [id number] JANNETH Florentino [facility] [place] [address] [place] [id number] 10/23/2022 08:58:47 10/23/2022 10:07:57 Pain in right hand 9912384806 01827 M79.641 Health Concerns Section Related Observation LastModified by Organization Detai ls LastModified Time None Recorded Concern Status LastModified by Organization Details LastModified Time None Recorded Advance Directives Directive None Recorded Payers Encounter Date Sequence Insurance Name Policy Number Policy Schofield Covered Member ID Schofield Member ID Guarantor Name 09/11/2022 1 [place] Yoly E Price [id number] Yoly E Price 09/11/2022 2 [employer] Yoly E Price [id number] Yoly E Price 10/23/2022 1 [place] Yoly E Price [id number] Yoly E Price 10/23/2022 2 [employer] Yoly E Price [id number] Yoly E Price OBGyn Episode No OBEpisode recorded.
--- OUTSIDE RECORDS SUMMARY | 2024-08-03 16:52 | XMS_ITS | Encounter Summary ---
Author Organization [facility] Address [address] [place] [address] Phone Care Team Providers Care Swatch Folder Name Role Phone Eloina Larsen MD Primary Care Provider Marilu Murphy MD PhD Unavailable [phone] Shayna Hurd MD Unavailable [phone] Presleyt, Laura Sullivan MD PhD Unavailable [phone] Serenity Navas MD Unavailable [phone] Eloina Larsen MD Primary Care Provider Eloina Larsen MD Unavailable [phone] Eloina Larsen MD Primary Care Provider Melvi Chandra MD Primary Care Provider Encounter Details Date Type Department Care Team (Latest Contact Info) Description 04/05/2020 Orders Only [facility] Scanning, Provider Social History Tobacco Use Types Packs/Day Years Used Date Smoking Tobacco: Never Smokeless Tobacco: Never Alcohol Use Standard Drinks/Week Comments Not Currently 0 (1 standard drink = 0.6 oz pur e alcohol) Comments No Sex and Gender Information Value Date Recorded Sex Assigned at Not on file Legal Sex Female 8:12 AM 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 Gender Identity Not on file Sexual Orientation Straight 11/21/2019 11 :27 AM CDT documented as of this encounter Plan of Treatment Not on file documented as of this encounter Procedures Procedure Name Priority Date/Time Associated Diagnosis Comments SCAN - LABS 04/05/2020 documented in this encounter Results * SCAN - LABS (04/05/2020) Provider Scanning Final Result documented in this encounter Visit Diagnoses Not on filedocumented in this encounter Care Teams Swatch Folder Relationship Specialty Start Date End Date Eloina Larsen MD PCP - General Family Medicine 10/12/19 12/26/20 Eloina Larsen MD [address] [place] [address] PCP - General Family Medicine 12/27/20 09/18/21 [place] [address] [place] [address] PCP - General Family Medicine 09/19/21 11/09/21 Melvi Chandra MD [address] [place] [address] [id number] PCP - General Family Practice 11/10/21 Marilu Murphy MD PhD Radiation Oncologist Radiation Oncology 11/23/19 Shayna Hurd MD Medical Oncologist/[facility] Medical Oncology 01/30/20 Laura Bejarano MD PhD Surgeon Surgical Oncology 01/30/20 Serenity Navsa MD [address] [facility] [address] [place] [address] Bone Health Specialist Bone Health 09/05/20 Eloina Larsen MD [address] [place] [address] Referring Physician Family Medicine 09/19/21 documented as of this encounter
--- OUTSIDE RECORDS SUMMARY | 2024-08-03 16:52 | XMS_ITS | Continuity of Care Document ---
Author Organization [facility] Address [address] [place] [address] [address] [place] [address] Phone Care Team Providers Care Lead Java Software Engineer Name Role Phone [facility] Unavailable Unavail able Mallorie Epperson Unavailable Unavailable Procedures Procedure Date Progressive Lens, Polycarb No Charge Glasses Check Progressive Lens, Hi Index No Charge Glasses Check No Charge Glasses Check Advance Directives Directive Yes / No Effective Date File Name No Information Encounters Encounter Description Practice Location Reason(s) For Visit Diagnoses Date Provider Providers Copied on Encounter [facility], [address] [place] [address] [address] [facility] [address], [place], [place], [id number], tel:[phone] [facility] No Information 0-201 0 [facility] . [address] [facility], [facility] [address], [place], [id number], [place]. tel:[phone] Referring Provider: Alex [place] OD [place], [address], [place], [address]. tel:[phone] g Provider: Mallorie Epperson, [address] [facility], [place], [address]. tel:[phone] 7639 [facility], [address], [place], [place], [address], [place] tel:[phone] [facility] No Information 1-201 0 Matthew RICHARD Johnson. [address], [place], [address], . tel:[phone] [facility], [address], [place], [place], [address], [place] tel:[phone] [facility] No Information 6-200 9 [facility] . [address], [address], [place], [place], [address], [place]. tel:[phone] Referring Provider: Alex [place] OD A, [address], [place], [address]. tel:[phone] g Provider: Mallorie Epperson, [address] [place], [address]. tel:[phone] [facility], [address], [place], [place], [address], [place] tel:[phone] [facility] No Information 9-200 9 [place] OD Alxe. [address] , [address], [place], [address], [place]. tel:[phone] [facility], [address] [place] [address] [address], [place], [place], [address], [place] tel:[phone] [facility] No Information 2-200 8 [place] OD Alex. [address] , [address], [place], [address], [place]. tel:[phone] Family History Family Member Type Diagnosis Age At Onset No Information Payers Payer name Insurance type Covered constitution party ID Authoriza tion(s) No Information Social History [...]
--- OUTSIDE RECORDS SUMMARY | 2024-08-03 16:52 | XMS_ITS ---
Author Organization [facility] Address [address] [place] [address] Care Team Providers Care Powered Bridge Specialist Name Role Phone Marilu Murphy MD PhD Unavailable Shayna Hurd MD Unavailable [phone] Presleyt, Laura Sullivan MD PhD Unavailable [phone] Serenity Navas MD Unavailable [phone] Eloina Larsen MD Unavailable [phone] Melvi Chandra MD Primary Care Provider Active Problems Problem Noted Date Diagnosed Date Breast skin changes 11/10/2021 Polymyalgia rheumatica syndrome (CMS/HCC) 2021 Overview (09/18/2021): Diagnosed in approximately 2016 with classic hip and shoulder girdle myalgias and elevated inflammatory markers treated with steroids which were completely discontinued by July 2020. 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 Past Plans No past plan information found. Radiation Treatments * Plan Last Treated On Elapsed Days Fractions Treated Prescribed Fraction Dose Prescribed Total Dose LUOQ BST 01/24/2020 29 5 300 cGy 1,500 cGy L BREAST 01/17/2020 22 16 266 cGy 4,256 cGy Reference Point Last Treated On Elapsed Days Session Dose Total Dose BST DPV 01/24/2020 29 300 cGy 1,500 cGy HERNANDEZ DPV 01/17/2020 22 266 cGy 4,256 cGy Lifetime Dose Tracking * Chemical Lifetime Dose Automatic Entry Manual Entr y Fluoro Time 0.4 minutes 0.4 minutes 0 minutes Air kerma at the reference point (Ka,r) 2 mGy 2 mGy 0 mGy
--- OUTSIDE RECORDS SUMMARY | 2024-08-03 16:52 | XMS_ITS | Clinical Summary ---
Author Organization [facility] Address [facility] [place] [address] Care Team Providers Care Offensive Coordinator Name Role Phone Marilu Murphy MD PhD Unavailable [phone] Shayna Hurd MD Unavailable [phone] Presleyt, Laura Sullivan MD PhD Unavailable [phone] Serenity Navas MD Unavailable [phone] Eloina Larsen MD Unavailable [phone] Melvi Chandra MD Primary Care Provider Allergies No known active allergies Medications calcium carb/vit D3/minerals (CALCIUM-VITAMIN D ORAL)Indications: osteoporosis Take 1 tablet by mouth 2 (two) times a day Active multivitamin tabletIndications :Vitamin Deficiency Prevention Take 1 tablet by mouth every morning Active venlafaxine XR (EFFEXOR-XR) 75 mg 24 hr capsuleIndication s:Anxiety with Depression Take 1 capsule (75 mg total) by mouth 2 (two) times a day 0 Active loperamide (IMODIUM) 2 mg capsuleIndication s:IBS Take 1 capsule (2 mg total) by mouth every morning Active acetaminophen ER (TYLENOL) 650 mg 8 hr tabletIndications :Pain Take 1 tablet (650 mg total) by mouth every 8 (eight) hours as needed for pain Active Synthroid 100 mcg tablet Take 1 tablet (100 mcg total) by mouth 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 Trigger index finger of left hand 05/26/2021 Aromatase inhibitor-associated arthralgia 2020 Encounter for follow-up exam ination after completed treatment for malignant neoplasm 01/30/2020 Personal history of irradiation 01/30/2020 USP current use of aromatase inhibitor History of breast cancer 11/14/2019 Malignant neoplasm of upper- outer quadrant of left breast in female, estrogen receptor positive 10/23/2019 Cancer Staging:Pathologic:Stage IB(pT2, pN0, cM0, G3, ER+, MS+, HER2-) - Signed by Sabine Sweet MD on 11/23/2019 Immunizations Name Administration Dates Next Due Influenza, Trivalent, Adjuva nted, Intramuscular 04/22/2017 Influenza, Trivalent, High D ose, Split, Preservative Free, Intramuscular 04/18/2016,04/05/2015,07/12/2014 Influenza, Trivalent, IM (MDV) 04/20/2014,2012 Pfizer SARS-CoV-2 Monovalent Vaccination (12+ Yrs) PURPLE 05/17/2021,09/14/2020,08/24/2020 Pneumococcal Conjugate 7-Valent 05/02/2008 Pneumococcal Polysaccharide PPV23 07/12/2007 Tdap 09/09/2015 ZOSTER LIVE 02/06/2013,07/12/2012 Surgical History Surgery Date Site/Laterality Comments DILATION AND CURETTAGE OF UTERUS 07/12/1991 - 07/11/1992 BREAST BIOPSY Left MENISCUS SURGERY 07/12/2015 - 07/11/2016 Left TOTAL KNEE ARTHROPLASTY 07/12/2014 - 07/11/2015 Right CATARACT EXTRACTION W/ INTRA OCULAR LENS IMPLANT 07/12/2011 - 07/11/2012 Bilateral FOOT GANGLION EXCISION 07/12/1994 - 07/11/1995 Right COLONOSCOPY BREAST LUMPECTOMY 11/02/2019 Left FLUID DRAIN SOFT TISSUE 03/12/2020 N/A ABSCESS CATHETER INJECTION 03/22/2020 N/A Medical History Medical History Date Comments Headache Depression Thyroid disease Polymyalgia (CMS/HCC) (HCC) Arthritis Lichen sclerosus Granuloma annulare History of pneumonia 07/2019 received 2 rounds of antibiotics History of reactive hypoglycemia 1988 started age 48 History of polymyalgia rheumatica on prednisone maintenance dosing Breast cancer (HCC) GERD (gastroesophageal reflux disease) Hypothyroidism Family History Medical History Relation Name Comments Heart attack Father Stroke Father Stomach cancer Maternal Grandmother unkno wn age Uterine cancer Maternal Grandmother unkno wn age Cervical cancer Mother Breast cancer Mother's Sister Breast cancer Other niece Relation Name Status Comments Father Maternal Grandmother Mother Mother's Sister Other niece Social History Tobacco Use Types Packs/Day Years Used Date Smoking Tobacco: Never Smokeless Tobacco: Never Tobacco Cessation:Counseling Given: Not Answered Alcohol Use Standard Drinks/Week Comments Not Currently 0 (1 standard drink = 0.6 oz pur e alcohol) Comments No Sex and Gender Information Value Date Recorded Sex Assigned at Not on file Legal Sex 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 Gender Identity Not on file Sexual Orientation Straight 11/21/2019 11 :27 AM CDT Obstetrics History Last Filed Vital Signs Vital Sign Reading Time Taken Comments Blood Pressure 135/60 03/31/2024 8:45 AM CDT Pulse 75 03/31/2024 8:45 AM CDT Temperature 36.1 ??C (97 ??F) 03/31/2024 8:45 AM CDT Respiratory Rate 18 03/31/2024 8:45 AM CDT Oxygen Saturation 98% 03/31/2024 8:45 AM CDT Inhaled Oxygen Concentration - - Weight 68.4 kg (150 lb 12.8 oz) 03/31/2024 8:45 AM CDT Height 170.2 cm (5' 7 ) 12/20/2023 9:53 AM CDT Body Mass Index 23.62 12/20/2023 9:53 AM CDT Plan of Treatment Health Maintenance Due Date Last Done Comments Depression Screening 1940 Hepatitis B Screening 1960 Well Visit 65+ 2007 Zoster Vaccine (2 of 3) 04/03/2013 02/06/2013, 07/12 Fall Risk Assessment 03/12/2021 03/12/2020 Covid-19 Vaccine (4 - 2023-2 5 season) 2024 05/17/2021, 09/14/2020, 08/24/2020 Influenza Vaccine (#1) 2024 7, 04/18/2016, 04/05/2015, Additional history exists Osteoporosis Screening-Bone Density Scan 09/09/2024 09/09/2022, 08/23/2020 DTaP/Tdap/Td Vaccine (2 - Td or Tdap) 09/08/2025 09/09/2015 Pneumococcal vaccine 65+ Completed 05/02/2008, 07/2007 Medical Devices Implanted Type Area Tab Card Press Operator Device Identifier Shelf Expiration Date Model / Serial / Lot Rt Total Knee Arthroplasty Knee Procedures Procedure Name Priority Date/Time Associated Diagnosis Comments DEXA AXIAL SKELETON BONE DENSITY 1 OR MORE SITES Schedule Routine, Read Routine (OP Routine) 09/09/2022 9:43 AM SPANNER OPERATOR Malignant neoplasm of upper-outer quadrant of left breast in female, estrogen receptor positive (CMS/HCC) (HCC) USP current use of aromatase inhibitor from Last 3 Months or Most Recently Relevant to Health Maintenance Results * Dexa Axial Skeleton Bone Density 1 or 2 Site (09/09/2022 9:43 AM SPANNER OPERATOR) Anatomical Region Laterality Modality Body N/A Radiographic Josefina ging Narrative 09/09/2022 12:45 PM SPANNER OPERATOR Patient Name: Yoly Price Date of : 1940 Date of scan: 09/09/2022 Bone mineral density was performed on a [employer] Discovery Densitometer. ?? Based on machine cross-calibration and precision studies the least significant changes of this densitometer is 0.024 g/cm2 at the spine, 0.020 g/cm2 at the total proximal femur, and 0.014g/cm2 at the forearm. HISTORY: This is a 82 y.o. postmenopausal female with a history of breast cancer, osteoporosis, and thyroid disease. She reports that she has never smoked. She has never used smokeless tobacco. Currently on treatment with calcium, vitamin D, and thyroid hormone, previously treated with glucocorticoids and aromatase inhibitor, and current complaint of back pain and leg pain. INDICATIONS: Menopause status, history of glucocorticoids use, and history of osteoporosis. FINDINGS: BONE MINERAL DENSITY OF THE LUMBAR SPINE Bone Mineral Density (BMD) of the lumbar spine was measured from L1-L4 and the average density was calculated to be 0.999 gm/cm2. This corresponds to a T-score (standard deviations from the mean of young adults) of -0.4. When compared to the previous study of 08/23/2020 there has been a 0.026 gm/cm (2.7%) increase in bone density that is considered significant. BONE MINERAL DENSITY OF THE PROXIMAL FEMUR Bone Mineral Density (BMD) of the left hip total was found to be 0.845 gm/cm2. This corresponds to a T-score standard deviations from the mean of young adults of -0.8. Femoral neck is 0.664 gm/cm2 with a T-score (standard deviations from the mean of young adults) of -1.7. When compared to the previous study of 08/23/2020 there has been no significant changes in bone density. SUMMARY: Bone mineral density shows evidence of low bone mass at the proximal femur and moderately increased fracture risk (Osteopenia). There has been a significant increase in bone density since previous measurement. ADDITIONAL COMMENTS: Postmenopausal Women and Men Over 50: Diagnostic criteria: Osteoporosis: BMD at or below -2.5 T-score; Osteopenia (low bone mass): BMD between -1.0 and -2.5 T-score. If the patient has a history of a fragility fracture, a fracture that occurred with trauma equivalent to a fall from a standing position or less, then the diagnosis is osteoporosis regardless of bone density. The history and data sections of the bone mineral density scan were prepared by Shanell Shipman)(Chepe)(CHASE) CBDT who is accredited by the International Society of Clinical Densitometry. The overall patient assessment and scan interpretation were performed by Araceli Alcocer MD who is certified by the International Society of Clinical Densitometry. [id number] Shayna Hurd MD IM DXA PROCEDURES F inal Result from Last 3 Months or Most Recently Relevant to Health Maintenance Insurance MEDICARE [facility] MEDICARE [facility] [place] [address] MEDICARE [facility] Advance Directives For more information, please contact: [phone] Documents on File Type Date Recorded Patient Botany Technician Expl anation ADVANCE DIRECTIVE 11/07/2019 11:43 AM Kaveh jauregui of Finding Fastener-Medical * Full Code (Latest Code Status on File) Date Activated Date Inactivated Comments 03/22/2020 9:07 AM 03/22/2020 2:15 PM * Full Code Date Activated Date Inactivated Comments 03/12/2020 2:34 PM 03/12/2020 8:01 PM Care Teams Offensive Coordinator Relationship Specialty Start Date End Date Melvi Chandra MD [address] [facility] [address] [place] [address] PCP - General Family Practice 11/10/21 Marilu Murphy MD PhD Radiation Oncologist Radiation Oncology 11/23/19 Shayna Hurd MD Medical Oncologist/Fire Regulator Medical Oncology 01/30/20 Laura Bejarano MD PhD Surgeon Surgical Oncology 01/30/20 Serenity Navas MD [address] [facility] [address] [place] [address] Bone Health Specialist Bone Health 09/05/20 Eloina Larsen MD [address] [address] [place] [address] Referring Physician Family Medicine 09/19/21
--- OUTSIDE RECORDS SUMMARY | 2024-08-03 16:52 | XMS_ITS | Referral Summary ---
Author Organization [facility] Address [facility] [place] [address] Care Team Providers Care Oracle Database Administrator Name Role Phone Marilu Murphy MD PhD Unavailable [phone] Shayna Hurd MD Unavailable [phone] Presleyt, Laura Sullivan MD PhD Unavailable Serenity Navas MD Unavailable [phone] Eloina Larsen MD Unavailable [phone] Melvi Chandra MD Primary Care Provider Allergies [...] 1 tablet (100 mcg total) by mouth early childhood before breakfast 3 Active betamethasone dipropionate (DIPROSONE) [...] neoplasm 01/30/2020 Personal history of irradiation 01/30/2020 jail current use of aromatase inhibitor History of breast cancer 11/14/2019 Malignant neoplasm of upper- outer quadrant of left breast in female, estrogen receptor positive 10/23/2019 Cancer Staging:Pathologic:Stage IB(pT2, pN0, cM0, G3, ER+, [place]+, HER2-) - Signed by Sabine Sweet MD on 11/23/2019 Immunizations Name Administration Dates Next Due Influenza, Trivalent, Adjuva nted, Intramuscular 04/22/2017 Influenza, Trivalent, High D ose, Split, Preservative Free, Intramuscular 04/18/2016,04/05/2015,07/12/2014 Influenza, Trivalent, IM (MDV) 04/20/2014,2012 Pfizer SARS-CoV-2 Monovalent Vaccination (12+ Yrs) PURPLE 05/17/2021,09/14/2020,08/24/2020 Pneumococcal Conjugate 7-Valent 05/02/2008 Pneumococcal Polysaccharide PPV23 07/12/2007 Tdap 09/09/2015 ZOSTER LIVE 02/06/2013,07/12/2012 Social History Tobacco Use Types Packs/Day Years Used Date Smoking Tobacco: Never Smokeless Tobacco: Never Tobacco Cessation:Counseling Given: Not Answered Alcohol Use Standard Drinks/Week Comments Not Currently 0 (1 standard drink = 0.6 oz pur e alcohol) Comments No Sex and Gender Information Value Date Recorded Sex Assigned at Not on file Legal Sex Female 8:12 AM BAG SEWER Gender Identity Not on file Sexual Orientation Straight 11/21/2019 11 :27 AM CDT Last Filed Vital Signs Vital Sign Reading [...] 12/20/2023 9:53 AM CDT Plan of Treatment Not on file Medical Devices Implanted Type Area Specification Manager Device Identifier Shelf Expiration Date Model / Serial / Lot Rt Total Knee Arthroplasty Knee Procedures Procedure Name Priority Date/Time Associated Diagnosis Comments DEXA AXIAL SKELETON BONE DENSITY 1 OR MORE SITES Schedule Routine, Read Routine (OP Routine) 09/09/2022 9:43 AM BAG SEWER Malignant neoplasm of upper-outer quadrant of left breast in female, estrogen receptor positive (CMS/HCC) (HCC) jail current use of aromatase inhibitor from Last 3 Months or Most Recently Relevant to Health Maintenance Results * Dexa Axial Skeleton Bone Density 1 or 2 Site (09/09/2022 9:43 AM BAG SEWER) Anatomical Region Laterality Modality Body N/A Radiographic Josefina ging Narrative 09/09/2022 12:45 PM BAG SEWER Patient Name: Yoly Price Date of : 1940 Date of scan: 09/09/2022 Bone mineral density was performed on a 20/20 [employer] Discovery Densitometer. ?? Based on machine cross-calibration [...] mineral density scan were prepared by Shanell Shipman)(Chepe)() CBDT who is accredited by the International Society of Clinical Densitometry. The overall patient assessment and scan interpretation were performed by Araceli Alcocer MD who is certified by the International Society of Clinical Densitometry. [id number] Shayna Hurd MD IMG DXA PROCEDURES F inal Result from Last 3 Months or Most Recently Relevant to Health Maintenance Insurance MEDICARE [facility] MEDICARE [facility] MEDICARE [facility] Advance Directives For more information, please contact: [phone] Documents on File Type Date Recorded Patient Senior Support Analyst Expl anation ADVANCE DIRECTIVE 11/07/2019 11:43 AM Kaveh r of Barrel Lapper-Medical * Full Code (Latest Code Status on File) Date Activated Date Inactivated Comments 03/22/2020 9:07 AM 03/22/2020 2:15 PM * Full Code Date Activated Date Inactivated Comments 03/12/2020 2:34 PM 03/12/2020 8:01 PM Care Teams Oracle Database Administrator Relationship Specialty Start Date End Date Melvi Chandra MD [address] [facility] [address] [place] [address] PCP - General Family Practice 11/10/21 Marilu Murphy MD PhD Radiation Oncologist Radiation Oncology 11/23/19 Shayna Hurd MD Medical Oncologist/Garland Machine Operator Medical Oncology 01/30/20 Laura Bejarano MD PhD Surgeon Surgical Oncology 01/30/20 Serenity Navas MD [address] [facility] [address] [place] [address] Bone Health Specialist Bone Health 09/05/20 Eloina Larsen MD [address] [facility] [address] [place] [address] Referring Physician Family Medicine 09/19/21
--- OUTSIDE RECORDS SUMMARY | 2024-08-03 16:52 | XMS_ITS | Encounter Summary ---
Author Organization [facility] Address [address] [place] [address] Phone Care Team Providers Care Dry Cleaner Apprentice Name Role Phone Suma Guaman MD Primary Care Provider [phone] Eloina Larsen MD Primary Care Provider Marilu Murphy MD PhD Unavailable [phone] Shayna Hurd MD Unavailable [phone] Laura Bejarano MD PhD Unavailable [phone] Serenity Navas MD Unavailable [phone] Eloina Larsen MD Primary Care Provider Eloina Larsen MD Unavailable [phone] Eloina Larsen MD Primary Care Provider Melvi Chandra MD Primary Care Provider Encounter Details Date Type Department Care Team (Latest Contact Info) Description 08/22/2018 Orders Only [facility] Scanning, Provider Social History Tobacco Use Types Packs/Day Years Used Date Smoking Tobacco: Never Assessed Comments Unknown Sex and Gender Information Value Date Recorded Sex Assigned at Not on file Legal Sex Female 8:12 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 Gender Identity Not on file Sexual Orientation Straight 11/21/2019 11 :27 AM CDT documented as of this encounter Plan of Treatment Not on file documented as of this encounter Procedures Procedure Name Priority Date/Time Associated Diagnosis Comments SCAN - RADIOLOGY/IMAGING 08/22/2018 documented in this encounter Results * SCAN - RADIOLOGY/IMAGING (08/22/2018) Anatomical Region Laterality Modality Other us Provider Scanning Final Result documented in this encounter Visit Diagnoses Not on filedocumented in this encounter Care Teams Dry Cleaner Apprentice Relationship Specialty Start Date End Date Suma Guaman MD [address] [address] PCP - General 10/26/11 10/11/19 Eloina Larsen MD [address] [address] PCP - General Family Medicine 10/12/19 12/26/20 Eloina Larsen MD [address] [place] [address] PCP - General Family Medicine 12/27/20 09/18/21 Eloina Larsen MD [address] [place] [address] PCP - General Family Medicine 09/19/21 11/09/21 [place] [address] [place] [address] PCP - General Family Practice 11/10/21 Marilu Murphy MD PhD [address] [address] Radiation Oncologist Radiation Oncology 11/23/19 Shayna Hurd MD [address] [facility] [address] Medical Oncologist/Portfolio Consultant Medical Oncology 01/30/20 Aft, Laura Sullivan MD PhD [address] [address] Surgeon Surgical Oncology 01/30/20 Serenity Navas MD [address] [address] Bone Health Specialist Bone Health 09/05/20 Eloina Larsen MD [address] [place], [place] [id number] Referring Physician Family Medicine 09/19/21 documented as of this encounter
== END 2024-08-01 09:33 | disposition home or self-care (01) ==
LOC: ANHNEURO 09:33
PROVIDERS: PCP Family Medicine; Visit Provider Family Medicine
DX: G56.03 Carpal tunnel syndrome, bilateral upper limbs (principal)
CPT/HCPCS: 95886; 95911

== ENCOUNTER 2024-11-02 07:55 | Outpatient (CLI) | payer MEDICARE, OTHER, SELFPAY ==
--- OUTSIDE RECORDS SUMMARY | 2024-11-02 08:02 | XMS_ITS ---
Author Organization [facility] Address [address] [place] [address] Care Team Providers Care Sports Physiotherapist Name Role Phone Marilu Murphy MD PhD Unavailable [phone] Shayna Hurd MD Unavailable [phone] Aft, Laura Sullivan MD PhD Unavailable [phone] Serenity Navas MD Unavailable [phone] Eloina Larsen MD Unavailable [phone] Melvi Chandra MD Primary Care Provider Active Problems Problem Noted Date Diagnosed Date Carpal tunnel syndrome, bilateral 08/30/2024 Anxiety 08/29/2024 Depressive disorder 08/29/2024 Disorder of uterus 08/29/2024 Fatigue 08/29/2024 Contracture of palmar fascia 08/29/2024 Granuloma annulare 08/29/2024 Hyperglycemia 08/29/2024 Hyperlipidemia 08/29/2024 Hypothyroidism 08/29/2024 Influenza 08/29/2024 Osteoarthritis of knee 08/29/2024 Primary generalized (osteo)arthritis 08/29/2024 Osteopenia 08/29/2024 Pernicious anemia 08/29/2024 Spider bite wound 08/29/2024 Vitamin D deficiency 08/29/2024 Headache 08/29/2024 Dupuytren's disease 08/29/2024 Dense breast 08/29/2024 Knee pain 08/29/2024 Pain in right hand 08/02/2022 Breast skin changes 11/10/2021 Polymyalgia rheumatica syndrome 09/18/2021 Overview (09/18/2021): Diagnosed in approximately 2016 with classic hip and shoulder girdle myalgias and elevated inflammatory markers treated with steroids which were completely discontinued by July 2020. 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 Past Treatment and Therapy Plans No past plan information found. Radiation Treatments * Course C1 L BREAST 201912/26/2019 - 01/24/2020 Treatment Period Energy Fraction Dose Fractions Total Dose Plans Planned LUOQ [facility] 01/18/2020 - 01/24/2020 300 5 / 1,500 L BREAST 12/26/2019 - 01/17/2020 266 16 / 4,256 Reference Points Delivered [facility] DPV 01/18/2020 - 01/24/2020 1,500 [facility] DPV 12/26/2019 - 01/17/2020 4,256 Lifetime Dose Tracking * Chemical Lifetime Dose Automatic Entry Manual Entr y Fluoro Time 0.4 minutes 0.4 minutes 0 minutes Air kerma at the reference point (Ka,r) 2 mGy 2 mGy 0 mGy
--- OUTSIDE RECORDS SUMMARY | 2024-11-02 08:02 | XMS_ITS | Clinical Summary ---
Author Organization [facility] Address [place] [address] Care Team Providers Care Food Production Worker Name Role Phone Marilu Murphy MD PhD Unavailable [phone] Shayna Hurd MD Unavailable [phone] Presleyt, Laura Sullivan MD PhD Unavailable [phone] Serenity Navas MD Unavailable [phone] Eloina Larsen MD Unavailable [phone] Melvi Chandra MD Primary Care Provider Allergies No known active allergies Medications calcium carb/vit D3/minerals (CALCIUM-VITAMIN D ORAL)Indications: osteoporosis Take 1 tablet by mouth 2 (two) times a day Active multivitamin tabletIndications :Vitamin Deficiency Prevention Take 1 tablet by mouth every morning Active loperamide (IMODIUM) 2 mg capsuleIndication s:IBS Take 1 capsule (2 mg total) by mouth every morning Active acetaminophen ER (TYLENOL) 650 mg 8 hr tabletIndications :Pain Take 1 tablet (650 mg total) by mouth every 8 (eight) hours as needed for pain Active Synthroid 100 mcg tablet Take 1 tablet (100 mcg total) by mouth airplane tube builder before breakfast 3 Active betamethasone dipropionate (DIPROSONE) 0.05 % ointment Apply topically 2 (two) times a day Active venlafaxine XR (EFFEXOR-XR) 150 mg 24 hr capsule Take 1 capsule (150 mg total) by mouth daily 4 Active HYDROcodone-aceta minophen (NORCO) 5-325 mg per tabletIndications :Pain Take 1 tablet by mouth every 6 (six) hours as needed for pain 12 tablet Active Active Problems Problem Noted Date Diagnosed [...] neoplasm 01/30/2020 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 History of breast cancer 11/14/2019 Malignant neoplasm of upper- outer quadrant of left breast in female, estrogen receptor positive 10/23/2019 Cancer Staging:Pathologic:Stage IB(pT2, pN0, cM0, G3, ER+, LA+, HER2-) - Signed by Sabine Sweet MD on 11/23/2019 Encounters Date Type Department Care Team Description 10/20/2024 8:50 AM CDT Clinical Support [address]th [place] [address] [place] [address] Postmenopausal (Primary Dx); Malignant neoplasm of upper-outer quadrant of left breast in female, estrogen receptor positive (HCC); Other specified disorders of bone density and structure, left thigh 09/26/2024 10:10 AM CDT Office Visit [facility] Orthopaedic Surgery [address] [place] [address] 6th [place] [address] [place] [address] Sabas Jackson MD Carpal tunnel syndrome, bilateral upper limbs (Primary Dx) 09/13/2024 9:15 AM ARMORED CAR GUARD - 09/13/2024 10:10 AM [facility] Surgery [facility] Operating [facility] ([facility]) [address] [place] [id number] Sabas Jackson MD RELEASE CARPAL TUNNEL - BILATERAL Local only 09/13/2024 6:46 AM ARMORED CAR GUARD - 09/13/2024 10:37 AM [facility] Hospital Encounter [facility] Operating [facility] ([facility]) [address] [place] [address] Sabas Jackson MD Carpal tunnel syndrome, bilateral (Primary Dx) Discharge Disposition: Discharge to home or self care 08/29/2024 11:20 AM ARMORED CAR GUARD Office Visit [facility] Orthopaedic Surgery [address] [place] [address] [place] [address] [place] [address] Sabas Jackson MD Carpal tunnel syndrome, bilateral upper limbs from Last 3 Months Immunizations Immunization Administration Dates Next Due Influenza, Trivalent, Adjuva [...] 03/12/2020 N/A ABSCESS CATHETER INJECTION 03/22/2020 N/A JOINT REPLACEMENT 2015 Medical History Medical History Date Comments Headache Depression Thyroid disease Polymyalgia Arthritis Lichen sclerosus Granuloma annulare History of pneumonia 07/2019 received 2 rounds of antibiotics History of reactive hypoglycemia 1988 started age 48 History of polymyalgia rheumatica on prednisone maintenance dosing Breast cancer (HCC) GERD (gastroesophageal reflux disease) Hypothyroidism Hyperlipidemia 08/29/2024 Family History Medical History Relation Name Comments Heart attack Father Dad Stroke Father Dad Stomach cancer Maternal Grandmother unkno wn age Uterine cancer Maternal Grandmother unkno wn age Cervical cancer Mother Breast cancer Mother's Sister Breast cancer Other niece Relation Name Status Comments Father Dad Maternal Grandmother Mother Mother's Sister Other niece Social History Tobacco Use Types Packs/Day Years Used Date Smoking Tobacco: Never Smokeless Tobacco: Never Tobacco Cessation:Counseling Given: Not Answered Alcohol Use Standard Drinks/Week Comments Not Currently 0 (1 standard drink = 0.6 oz pur e alcohol) AUDIT-C Answer Date Recorded Q1: How often do you have a drink containing alcohol? Never 09/13/2024 Q2: How many drinks containi ng alcohol do you have on a typical day when you are drinking? Patient does not drink Q3: How often do you have si x or more drinks on one occasion? Never 09/13/2024 Personal Safety Answer Date Recorded Have you ever been in or are you currently in a harmful physical or emotional relationship or is someone making you feel afraid or unsafe? Denies 09/13/2024 Comments No Sex and Gender Information Value Date Recorded Sex Assigned at Not on file Legal Sex Female 8:12 AM ARMORED CAR GUARD Gender Identity Not on file Sexual Orientation Straight 11/21/2019 11 :27 AM CDT Obstetrics History Last Filed Vital Signs Vital Sign Reading Time Taken Comments Blood Pressure 151/60 09/13/2024 10:20 AM ARMORED CAR GUARD Pulse 70 09/13/2024 10:20 AM ARMORED CAR GUARD Temperature 36.9 C (98.4 F) 09/13/2024 9:40 AM ARMORED CAR GUARD Respiratory Rate 12 09/13/2024 10:20 AM ARMORED CAR GUARD Oxygen Saturation 100% 09/13/2024 10:20 AM ARMORED CAR GUARD Inhaled Oxygen Concentration - - Weight 68 kg (150 lb) 09/13/2024 7:37 AM ARMORED CAR GUARD Height 170.2 cm (5' 7 ) 09/13/2024 7:37 AM ARMORED CAR GUARD Body Mass Index 23.49 09/13/2024 7:37 AM ARMORED CAR GUARD Plan of Treatment Health Maintenance Due Date Last Done Comments Depression Screening 1940 Hepatitis B Screening 1960 Well Visit 65+ 2007 Zoster Vaccine (2 of 3) 04/03/2013 02/06/2013, 07/12 Covid-19 Vaccine ( - 2023-2 5 season) 2024 05/17/2021, 09/14/2020, 08/24/2020 Influenza Vaccine (Season Ended) 2025 04/22/2017, 04/18/2016, 04/05/2015, Additional history exists DTaP/Tdap/Td Vaccine (2 - Td or Tdap) 09/08/2025 09/09/2015 Fall Risk Assessment 09/13/2025 09/13/2024 Osteoporosis Screening-Bone Density Scan 10/20/2026 10/20/2024, 09/09/2022, 08/23/2020 Pneumococcal vaccine 65+ Completed 05/02/2008, 07/2007 Medical Devices Implanted Type Area Videotape Operator Device Identifier Shelf Expiration Date Model / Serial / Lot Rt Total Knee Arthroplasty Knee Procedures Procedure Name Priority Date/Time Associated Diagnosis Comments DEXA AXIAL SKELETON BONE DENSITY 1 OR MORE SITES Schedule Routine, Read Routine (OP Routine) 10/20/2024 9:07 AM CDT Malignant neoplasm of upper-outer quadrant of left breast in female, estrogen receptor positive (HCC) RELEASE CARPAL TUNNEL - BILATERAL 09/13/2024 9:06 AM ARMORED CAR GUARD Carpal tunnel syndrome, bilateral Case Notes 09/06 @1526 LINE UP UPDATED PER RADHA VIA STAFF MSG (FREDERIC) from Last 3 Months Results * Dexa Axial Skeleton Bone Density 1 or 2 Site (10/20/2024 9:07 AM CDT) Anatomical Region Laterality Modality Body N/A Radiographic Josefina ging Narrative 10/20/2024 1:08 PM CDT Patient Name: Yoly Price Date of : 1940 Date of scan: 10/20/2024 Bone mineral density was performed on a [id number] Discovery Densitometer. Based on machine cross-calibration and precision studies the least significant changes of this densitometer is 0.024 g/cm2 at the spine, 0.020 g/cm2 at the total proximal femur, and 0.014g/cm2 at the forearm. HISTORY: This is a 84 y.o. postmenopausal female with a history of breast cancer, osteoporosis, and thyroid disease. She reports that she has never smoked. She has never used smokeless tobacco. Currently on treatment with calcium, vitamin D, and thyroid hormone, previously treated with glucocorticoids and aromatase inhibitor, and current complaint of back pain. INDICATIONS: Menopause status, history of glucocorticoids use, and history of osteoporosis. FINDINGS: BONE MINERAL DENSITY OF THE LUMBAR SPINE Bone Mineral Density (BMD) of the lumbar spine was measured from L1-L4 and the average density was calculated to be 0.990 gm/cm2. This corresponds to a T-score (standard deviations from the mean of young adults) of -0.5. When compared to the previous study of 09/09/2022 there has been no significant changes in bone density. BONE MINERAL DENSITY OF THE PROXIMAL FEMUR Bone Mineral Density (BMD) of the left hip total was found to be 0.834 gm/cm2. This corresponds to a T-score standard deviations from the mean of young adults of -0.9. Femoral neck is 0.663 gm/cm2 with a T-score (standard deviations from the mean of young adults) of -1.7. When compared to the previous study of 09/09/2022 there has been no significant changes in bone density. SUMMARY: Bone mineral density shows evidence of low bone mass at the proximal femur and moderately increased fracture risk (Osteopenia). There has been no significant changes in bone density since previous measurement. ADDITIONAL [...] bone mineral density scan were prepared by Serenity Shipman) NOEMY who is accredited by the International Society of Clinical Densitometry. The overall patient assessment and scan interpretation were performed by Meagan Sparks M.D. who is certified by the International Society of Clinical Densitometry. [id number] Shayna Hurd MD IM DXA PROCEDURES F inal Result from Last 3 Months [place] [address] MEDICARE [facility] MEDICARE [facility] MEDICARE [facility] [place] [address] Advance Directives For more information, please contact: [phone] Documents on File Type Date Recorded Patient Label Rewinder Expl anation ADVANCE DIRECTIVE 11/07/2019 11:43 AM Kaveh r of Race [employer] * Full Code (Latest Code Status on File) Date Activated Date Inactivated Comments 03/22/2020 9:07 AM 03/22/2020 2:15 PM * Full Code Date Activated Date Inactivated Comments 03/12/2020 2:34 PM 03/12/2020 8:01 PM Care Teams Food Production Worker Relationship Specialty Start Date End Date Melvi Chandra MD [address] [facility] [facility] [address] [place] [address] PCP - General Family Practice 11/10/21 Marilu Murphy MD PhD Radiation Oncologist Radiation Oncology 11/23/19 Shayna Hurd MD Medical Oncologist/Graphic Design Teacher Medical Oncology 01/30/20 Laura Bejarano MD PhD Surgeon Surgical Oncology 01/30/20 Serenity Navas MD [address] [facility] [address] [place] [address] Bone Health Specialist Bone Health 09/05/20 Eloina Larsen MD [address] [facility] [address] [place] [address] Referring Physician Family Medicine 09/19/21
--- OUTSIDE RECORDS SUMMARY | 2024-11-02 08:02 | XMS_ITS | Encounter Summary ---
Author Organization [facility] Address [address] [place] [address] Care Team Providers Care Candy Feeder Name Role Phone Suma Guaman MD Primary Care Provider [phone] Jerman Knox MD Unavailable [phone] Al Wharton MD Unavailable [phone] Encounter Details Date Type Department Care Team (Late st Contact Info) Description 03/20/2015 Therapy Visit [facility] Orthopedics [address] [facility] [address] [place] [address] [place] [phone] [address] Social History Tobacco Use Types Packs/Day Years Used Date Smoking Tobacco: Never Alcohol Use Standard Drinks/Week Comments No 0 (1 standard drink = 0.6 oz pur e alcohol) Comments No Sex and Gender Information Value Date Recorded Sex Assigned at Not on file Legal Sex Female 8:55 AM CDT Gender Identity Not on file Sexual Orientation Not on file documented as of this encounter Functional Status * Is person deaf or have serious hearing difficulty? Answer Date of Assessment Author No 03/02/2015 1:33 PM GABBYT Kaykay Canales RN * Is person blind or have serious difficulty seeing? Answer Date of Assessment Author No 03/02/2015 1:33 PM GABBYT Kaykay Canales RN * Does person have serious difficulty walking/climbing stairs? Answer Date of Assessment Author No 03/02/2015 1:33 PM Kaykay Ralph RN * Does person have difficulty dressing/bathing? Answer Date of Assessment Author No 03/02/2015 1:33 PM Kaykay Ralph RN * Does person have difficulty doing errands alone? Answer Date of Assessment Author No 03/02/2015 1:33 PM Kaykay Ralph RN documented as of this encounter Mental Status * Does person have difficulty concentrating/remembering/making decisions? Answer Entry Date Author No 03/02/2015 1:33 PM Kaykay Ralph RN documented in this encounter Plan of Treatment Not on file documented as of this encounter Visit Diagnoses Not on filedocumented in this encounter Care Teams Candy Feeder Relationship Specialty Start Date End Date Suma Guaman MD [address] [place] [phone] PCP - General Family Medicine 12/31/14 11/12/15 [place] [address] [place] [address] Orthopedic Surgery 02/04/15 [place] [address] [place], [place] [id number] Orthopedic Surgery 12/06/15 documented as of this encounter
--- OUTSIDE RECORDS SUMMARY | 2024-11-02 08:02 | XMS_ITS | Clinical Summary ---
Author Organization [facility] Address [address] [facility] [place] [address] Care Team Providers Care Metal Numerical Tool Programmer Name Role Phone Jerman nKox MD Unavailable [phone] Al Wharton MD Unavailable [phone] Source Comments [facility],non-owned Affiliates and Associated Physician Practices is amultiple site organization consisting of ambulatory clinics and hospital sitesin [place], [place], [place] and [place]. This disclosure is being madepursuant to the Care Everywhere program and may not contain all information available regarding this patient. Last updated 18.[facility] Allergies No known active allergies Medications * Be aware that medications may not be up to date on this document. Alwaysverify current medications with the patient. levothyroxine (SYNTHROID) 100 MCG tablet Take 100 mcg by mouth daily before breakfast Active multivitamin daily (THERAGRAN) tablet Take 1 Tab by mouth daily with food Active ALPRAZolam (XANAX) 0.25 MG tablet Take 0.25 mg by mouth 3 times daily as needed for Anxiety Active diphenhydramine- APAP, sleep, (TYLENOL PM ES) 25-500 MG tablet Take 1 Tab by mouth nightly as needed for Insomnia Active calcium-vitamin D (CALTRATE PLUS D) 600-200 MG-UNIT tablet Take 1 Tab by mouth 2 times daily Active Misc Natural Products (GNP GLUCOSAMINE CHONDROIT TS PO) Take 1 Tab by mouth 2 times daily Glucosamine-ch ondroitin triple strength Active clobetasol (TEMOVATE) 0.05 % ointment 5 Active Glucosamine-Jono droitin (GLUCOSAMINE CHONDR COMPLEX PO) Active Loperamide HCl (IMODIUM A-D PO) Act sagrario HYDROcodone-acet aminophen (NORCO) 7.5-325 MG tablet Take 1 Tab by mouth every 4 hours as needed for Pain 30 Tab 0 6 Active Active Problems Problem Noted Date Diagnosed Date S/P left knee arthroscopy 12/18/2015 Tear of medial meniscus of knee 11/22/2015 Osteoarthrosis involving lower leg 02/04/2015 Overview (10/05/2015): 2015 IMO Updt Hypothyroid Reactive hypoglycemia Osteoporosis Immunizations Immunization Administration Dates Next Due INFLUENZA VACCINE, HIGH-DOSE , QUADR. (FLUZONE HIGH-DOSE QUADRIVALENT; 65Y+), 0.7 ML (HD-IIV4) 04/30/2020 Family History Medical History Relation Name Comments Cancer Mother Boiler Shop Mechanic Heart Disease Other Pacemaker Other Relation Name [...] 65 12/11/2015 2:22 PM CDT Temperature 36.3 C (97.4 F) 12/11/2015 2:22 PM CDT Respiratory Rate 14 12/11/2015 2:22 PM CDT [...] Comments BONE DENSITY TESTING 1940 MEDICARE AWV 12 MONTHS 1940 DTAP/TDAP/TD VACCINES (1 - Tdap) 1961 PNEUMOCOCCAL VACCINE 50+ (1 of 1 - PCV) 1992 ZOSTER VACCINE (1 of 2) 1992 Respiratory Syncytial Virus (RSV) Vaccine Pt: or over 60 yrs (1 - 1-dose 75+ series) 2017 COVID-19 VACCINE (1 - 2023-2 5 season) 2024 DEPRESSION SCREENING 07/12/2024 INFLUENZA VACCINE (Season Ended) 2025 04/30/20 HEPATITIS B VACCINE Aged Out No longe r eligible based on patient's age to complete this topic HIB VACCINE Aged Out No longer eligi ble based on patient's age to complete this topic HPV VACCINE Aged Out No longer eligi ble based on patient's age to complete this topic MENINGOCOCCAL (Group B) VACC INE SHARED DECISION-MAKING Aged Out No longer eligibl e based on patient's age to complete this topic MENINGOCOCCAL GROUPS A/C/Y/W VACCINE Aged Out No longer eligible b ased on patient's age to complete this topic Medical Devices Implanted Type Area Hog Ribber Device Identifier Shelf Expiration Date Model / Serial / Lot Marco Bone Acra Hv Implanted:Qty: 1 on 02/28/2015 by Jerman Knox MD at [facility] Right: [employer] 10/09/2016 [id number] / / [id number] Ty Tibial I Beam Fix Bar 71mm Implanted:Qty: 1 on 02/28/2015 by Jerman Knox MD at [facility] Right: [employer] 01/08/2025 [id number] / / [id number] Suhas Bradley Arcom Wire Polyeth Xsm 28 X 8 Implanted:Qty: 1 on 02/28/2015 by Jerman Knox MD at [facility] Right: [employer]nee [employer] 12/23/2019 [id number] / / [id number] Ins Kn Arnoldrd Fem Cocr R-Intlok 65.0mm Implanted:Qty: 1 on 02/28/2015 by Jerman Knox MD at [facility] Right: [employer]nee [employer] 01/08/2025 [id number] / / [id number] Brdg Tib Savannah Stbl Implanted:Qty: 1 on 02/28/2015 by Jerman Knox MD at [facility] Right: [employer]nee [employer] 12/22/2019 [id number] / / [id number] Insurance MEDICARE [facility] MEDICARE [facility] [place] [address] Advance Directives Documents on File Type Date Recorded Patient Remediation Project Engineer Expl anation Adv Directive/Living Will/POA 12/11/2015 10:05 AM POWER OF BRICK CHIMNEY SUPERVISOR * Full Code (Latest Code Status on File) Date Activated Date Inactivated Comments 02/28/2015 12:02 PM 03/02/2015 4:27 PM Care Teams Metal Numerical Tool Programmer Relationship Specialty [place] [id number] [address] [facility] [address] [place] [id number] Orthopedic Surgery 02/04/15 [place] [address] [place] [address] Orthopedic Surgery 12/06/15
--- OUTSIDE RECORDS SUMMARY | 2024-11-02 08:02 | XMS_ITS | Data Portability ---
Author Organization [place] - [facility] [employer], Main Office Address [address] [place] [address] Care Team Providers Care Health Informatics Specialist Name Role Phone KAITLIN COTTER Primary Care [...] more than half this time spent in uysg-jv-ifiv care [email or web address] Not available 09/11/2022 09:54:00 10/23/2022 [...] [email or web address] [facility] [place], [address] [facility] [address], [place], [address], 3 10:07:58 Medication Orders None record ed. Patient TargetsNo targets recorded. Patient InstructionsNo instructions recorded. Reason for Referral None Reported. Results Created Date Observation Date Name Description Value Unit Range Abnormal Flag Note LastModifiedBy Organization Detail LastModifiedTime 08/03/1908/01/2022 XR, finge r(s), 2 or more view No observ ation record ed. [id number] Not Available 09/09/2022 06:11:40 10/24/19 XR, hand No observ ation record ed. [email or web address] [facility] [place] [address], [place], [address], 10/23/2022 09:56:37 Result Notes None recorded. Problems Name Problem SNOMED Code Status Onset Date Resolution Date Notes Provider Name and Address Organization Details Recorded Time Disorder of uterus 43306434 Active Not Available [facility] 3 06:00:07 Extremely dense breast compositio n 827487334 Active Not Available [facility] 3 06:00:07 Osteoarthr itis of knee 218805429 Active Not Available [facility] 3 06:00:07 Headache 54110538 Active Not Available [facility] 3 06:00:07 Knee pain Active Not Available [facility] 3 06:00:07 Osteopenia 029938497 Active Not Available [facility] 3 06:00:07 Pain in right hand 6194817944637 09 Active 2022 Not Available [facility] 3 06:00:07 Vitamin D deficiency 45726338 Active Not Available [facility] 3 06:00:07 Depressive disorder 05415842 Active Not Available [facility] 3 06:00:08 Spider bite wound 311845014 Active Not Available [facility] 3 06:00:08 Hypothyroi dism 66274962 Active Not Available [facility] 3 06:00:08 Dupuytren' s disease 552537407 Active Not Available [facility] 3 06:00:08 Contractur e of palmar fascia 794906645 Active Not Available [facility] 3 06:00:08 Anxiety 53722726 Active Not Available [facility] 3 06:00:08 Hyperlipid emia 09542791 Active Not Available [facility] 3 06:00:08 Influenza 5215179 Active Not Available [facility] 3 06:00:08 Osteoporos is 59612405 Active Not Available [facility] 3 06:00:08 Granuloma annulare 25776170 Active Not Available [facility] 3 06:00:09 Hyperglyce aubrey 27768149 Active Not Available [facility] 3 06:00:09 Pernicious anemia 94485171 Active Not Available [facility] 3 06:00:09 Fatigue 65600059 Active Not Available [facility] 3 06:00:09 Problem Notes None recorded. Procedures Surgical History Date Name Laterality Status Provider Name and Address Organization Details Recorded Time lumpectomy of left breast completed Not Available [facility] 09/09/2022 05:53:40 partial meniscectomy of knee completed Not Available [facility] 09/09/2022 05:53:40 Knee Replacement completed Not Available [facility] 09/09/2022 05:53:40 Imaging Results Imaging Date Name Status LastModified by Organiz ation Details LastModified Time 08/01/2022 XR, finger(s), 2 or more view completed [id number] Information not available 09/09/2022 06:11:40 10/23/2022 XR, hand completed [email or web address] [place] [address], [place], [address], 10/23/2022 09:56:37 Procedure Notes None recorded. Medical [...] Updated DateTime 08/03/2022 22.4 kg/m2 172.72 cm 01120.08 g Not Available [facility] 09/09/2022 05:54:15 Date Recorded Body height Provider Name an d Address Organization Details Last Updated DateTime 09/11/2022 172.72 cm MENDEZ Patricia [place] - [facility] [employer] [facility] 09/11/2022 09:04:08 Date Recorded Body height Provider Name an d Address Organization Details Last Updated DateTime 10/23/2022 172.72 cm MENDEZ Patricia [place] [facility] 10/23/2022 09:04:01 Social History None recorded. Functional Status None recorded. Mental Status None recorded. Family History Relationship Description Onset Age of this Age Resolved Age Notes LastModified by Organization Details LastModified Time Father Heart disease [id number] Not available 09/09/2022 05:53:41 Mother Family history of malignant neoplasm [id number] Not available 09/09/2022 05:53:41 Mother Hypertensive disorder [id number] Not available 09/09/2022 05:53:41 Maternal Uncle Diabetes mellitus [id number] Not available 09/09/2022 05:53:41 Medical History Condition Response ARTHRITIS Y CANCER: SPECIFY Y Gynecological HistoryNo gynecological history recorded. Obstetrics History GPAL:G 0 P 0 0 0 0 Immunizations Vaccine Type Date Status Note Provider Nam e and Address Organization Details Recorded Time Influenza, split virus, trivalent, preservative 4 completed Not Available [facility] 09/09/2022 06:10:50 zoster live 3 completed Not Available [facility] 09/09/2022 06:10:50 pneumococcal conjugate PCV 7 8 completed Not Available [facility] 09/09/2022 06:10:50 Influenza, split virus, trivalent, preservative 3 completed Not Available [facility] 09/09/2022 06:10:51 Past Encounters Encounter ID Performer Location Encounter Start Date Encounter Closed Date Diagnosis/Indication Diagnosis SNOMED-CT Code Diagnosis ICD10 Code Diagnosis Note [id number] [facility] [place] [address] [place] [address] 08/03/2022 00:00:00 08/09/2022 12:40:45 [id number] Adan Flores MD [facility] [place] [address] [facility] [address] [place] [address] 09/11/2022 08:56:35 09/11/2022 09:59:35 Pain in right hand 1161388161 20454 M79.641 [id number] JANNETH Florentino [facility] [place] [address] [place] [id number] 10/23/2022 08:58:47 10/23/2022 10:07:57 Pain in right hand 8819179935 60212 M79.641 Health Concerns Section Related Observation LastModified by Organization Detai ls LastModified Time None Recorded Concern Status LastModified by Organization Details LastModified Time None Recorded Advance Directives Directive None Recorded Payers Encounter Date Sequence Insurance Name Policy Number Policy Schofield Covered Member ID Schofield Member ID Guarantor Name 09/11/2022 1 [place] Yoly E Price [id number] Yoly E Price 09/11/2022 2 [employer] Yoly E Price [id number] Yoly E Price 10/23/2022 1 [place] Yoly E Price [id number] Yoly E Price 10/23/2022 2 [employer] Yoly E Price [id number] Yoly E Price OBGyn Episode No OBEpisode recorded.
--- OUTSIDE RECORDS SUMMARY | 2024-11-02 08:03 | XMS_ITS | Encounter Summary ---
Author Organization [facility] Address [address] [place] [address] Phone Care Team Providers Care Track Car Operator Name Role Phone Eloina Larsen MD Primary Care Provider Marilu Murphy MD PhD Unavailable [phone] Shayna Hurd MD Unavailable [phone] [place], Laura Sullivan MD PhD Unavailable [phone] Serenity Navas MD Unavailable [phone] Eloina Larsen MD Primary Care Provider Eloina Larsen MD Unavailable [phone] Eloina Larsen MD Primary Care Provider Melvi [...] on file 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 Gender Identity Not on file Sexual Orientation [...] on filedocumented in this encounter Care Teams Track Car Operator Relationship Specialty Start Date End Date Eloina Larsen MD PCP - General Family Medicine 10/12/19 12/26/20 Eloina Larsen MD [address] [place] [address] PCP - General Family Medicine 12/27/20 09/18/21 [place] [address] [place] [address] PCP - General Family Medicine 09/19/21 11/09/21 Melvi Chandra MD [address] [place] [address] [id number] PCP - General Family Practice 11/10/21 Marilu Murphy MD PhD Radiation Oncologist Radiation Oncology 11/23/19 Shayna Hurd MD Medical Oncologist/Houseman Medical Oncology 01/30/20 Laura Bejarano MD PhD Surgeon Surgical Oncology 01/30/20 Serenity Navas MD [address] [facility] [address] [place] [address] Bone Health Specialist Bone Health 09/05/20 Eloina Larsen MD [address] [place] [address] Referring Physician Family Medicine 09/19/21 documented as of this encounter
--- OUTSIDE RECORDS SUMMARY | 2024-11-02 08:03 | XMS_ITS | Continuity of Care Document ---
Author Organization [facility] Address [address] [place] [address] [address] [place] [address] Phone Care Team Providers Care Sports Manager Name Role Phone [facility] Unavailable Unavail able Mallorie Epperson Unavailable Unavailable Procedures Procedure Date Progressive Lens, Polycarb No Charge Glasses Check Progressive Lens, Hi Index No Charge Glasses Check No Charge Glasses Check Advance Directives Directive Yes / No Effective Date File Name No Information Encounters Encounter Description Practice Location Reason(s) For Visit Diagnoses Date Provider Providers Copied on Encounter [facility], [address] [place] [address] [facility] [address], [place], [place], [address], tel:[phone] [facility] No Information 0-201 0 [facility] . [address] [facility], [facility] [address], [place], [address], [place]. tel:[phone] Referring Provider: Alex Matthew OD [place], [address], [place], [address]. tel:[phone] g Provider: Mallorie Epperson, [address] [facility], [place], [address]. tel:[phone] 9012 [facility], [address], [place], [place], [address], [place] tel:[phone] [facility] No Information 1-201 0 Matthew RICHARD Johnson. [address] , [address], [place], [address], . tel:[phone] [facility], [address] [facility] [place] [address], [place], [place], [address], [place] tel:[phone] [facility] No Information 6-200 9 [facility] . [address] [facility], [address], [place], [place], [address], [place]. tel:[phone] Referring Provider: Alex Matthew OD A, [address], [place], [address]. tel:[phone] g Provider: Mallorie Epperson, [address] [place], [address]. tel:[phone] [address] [facility], [address], [place], [place], [address], [place] tel:[phone] [facility] No Information 9-200 9 Matthew OD Alex. [address] , [address], [place], [address], [place]. tel:[phone] [facility], [address] [place] [address] [address], [place], [place], [address], [place] tel:[phone] [facility] No Information 2-200 8 Matthew OD Alex. [address] , [address], [place], [address], [place]. tel:[phone] Family History Family Member Type Diagnosis Age At Onset No Information Payers Payer name Insurance type Covered green party ID Authoriza tion(s) No Information Social [...]
--- OUTSIDE RECORDS SUMMARY | 2024-11-02 08:03 | XMS_ITS | Referral Summary ---
Author Organization [facility] Address [address] [place] [address] Care Team Providers Care Consulting Group Analyst Name Role Phone Marilu Murphy MD PhD Unavailable [phone] Shayna Hurd MD Unavailable [phone] Aft, Laura Sullivan MD PhD Unavailable [phone] Serenity Navas MD Unavailable [phone] Eloina Larsen MD Unavailable [phone] Melvi Chandra MD Primary Care Provider Encounters Date Type Department Care Team Description 10/20/2024 8:50 AM CDT Clinical Support [facility] [address] [place] [address] 5th [place] [address] [place] [address] Postmenopausal (Primary Dx); Malignant neoplasm of upper-outer quadrant of left breast in female, estrogen receptor positive (HCC); Other specified disorders of bone density and structure, left thigh 09/26/2024 10:10 AM CDT Office Visit [facility] Orthopaedic Surgery [address] [place] [address] 6th [place] [address] [place] [address] Sabas Jackson MD Carpal tunnel syndrome, bilateral upper limbs (Primary Dx) 09/13/2024 9:15 AM QUALITY ASSURANCE CONSULTANT - 09/13/2024 10:10 AM QUALITY ASSURANCE CONSULTANT Surgery [facility] [place] [address] Sabas Jackson MD RELEASE CARPAL TUNNEL - BILATERAL Local only 09/13/2024 6:46 AM QUALITY ASSURANCE CONSULTANT - 09/13/2024 10:37 AM QUALITY ASSURANCE CONSULTANT Hospital Encounter [facility] Operating [facility] ([facility]) [address] [place] [address] Sabas Jackson MD Carpal tunnel syndrome, bilateral (Primary Dx) Discharge Disposition: Discharge to home or self care 08/29/2024 11:20 AM QUALITY ASSURANCE CONSULTANT Office Visit [facility] Orthopaedic Surgery [address] [facility] 6th [place] [address] [place] [address] Sabas Jackson MD Carpal tunnel syndrome, bilateral upper limbs from Last 3 Months Allergies No known active allergies Medications calcium [...] 1 tablet (100 mcg total) by mouth pathology technician before breakfast 3 Active betamethasone dipropionate (DIPROSONE) 0.05 % ointment Apply topically 2 (two) times a day Active venlafaxine XR (EFFEXOR-XR) 150 mg 24 hr capsule Take 1 capsule (150 mg total) by mouth daily 4 Active HYDROcodone-aceta minophen (NORCO) 5-325 mg per tabletIndications :Pain Take 1 tablet by mouth every 6 (six) hours as needed for pain 12 tablet 5 Active Active Problems Problem Noted Date Diagnosed [...] syndrome 09/18/2021 Overview (09/18/2021): Diagnosed in approximately 2015 with classic hip and shoulder girdle myalgias and elevated inflammatory markers treated with steroids which were completely discontinued by July 2020. 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 Trigger index finger of left hand 05/26/2021 Aromatase inhibitor-associated arthralgia 2020 Encounter for follow-up exam ination after completed treatment for malignant neoplasm 01/30/2020 Personal history of irradiation 01/30/2020 penitentiary current use of aromatase inhibitor History of breast cancer 11/14/2019 Malignant neoplasm of upper- outer quadrant of left breast in female, estrogen receptor positive 10/23/2019 Cancer Staging:Pathologic:Stage IB(pT2, pN0, cM0, G3, ER+, MN+, HER2-) - Signed by Sabine Sweet MD on 11/23/2019 Immunizations Immunization Administration Dates Next Due Influenza, [...] on file 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 Gender Identity Not on file Sexual Orientation Straight 11/21/2019 11 :27 AM CDT Last Filed Vital Signs Vital Sign Reading Time Taken Comments Blood Pressure 151/60 09/13/2024 10:20 AM QUALITY ASSURANCE CONSULTANT Pulse 70 09/13/2024 10:20 AM QUALITY ASSURANCE CONSULTANT Temperature 36.9 C (98.4 F) 09/13/2024 9:40 AM QUALITY ASSURANCE CONSULTANT Respiratory Rate 12 09/13/2024 10:20 AM QUALITY ASSURANCE CONSULTANT Oxygen Saturation 100% 09/13/2024 10:20 AM QUALITY ASSURANCE CONSULTANT Inhaled Oxygen Concentration - - Weight 68 kg (150 lb) 09/13/2024 7:37 AM QUALITY ASSURANCE CONSULTANT Height 170.2 cm (5' 7 ) 09/13/2024 7:37 AM QUALITY ASSURANCE CONSULTANT Body Mass Index 23.49 09/13/2024 7:37 AM QUALITY ASSURANCE CONSULTANT Plan of Treatment Not on file Medical Devices Implanted Type Area Sampler Pickup Device Identifier Shelf Expiration Date Model / [...] CARPAL TUNNEL - BILATERAL 09/13/2024 9:06 AM QUALITY ASSURANCE CONSULTANT Carpal tunnel syndrome, bilateral Case Notes 09/06 [...] Bone mineral density was performed on a [employer] Discovery Densitometer. Based on machine cross-calibration and [...] mineral density scan were prepared by Serenity Amador(Dina) NOEMY who is accredited by the International Society of Clinical Densitometry. The overall patient assessment and scan interpretation were performed by Meagan Sparks M.D. who is certified by the International Society of Clinical Densitometry. [id number] Shayna Hurd MD IM DXA PROCEDURES F inal Result from Last 3 Months Insurance MEDICARE [facility] [place] [place] [address] MEDICARE [facility] MEDICARE [facility] [place] [id number] Advance Directives For more information, please contact: [phone] Documents on File Type Date Recorded Patient Liner Installer Expl anation ADVANCE DIRECTIVE 11/07/2019 11:43 AM Kaveh [employer] of [employer] * Full Code (Latest Code Status on File) Date Activated Date Inactivated Comments 03/22/2020 9:07 AM 03/22/2020 2:15 PM * Full Code Date Activated Date Inactivated Comments 03/12/2020 2:34 PM 03/12/2020 8:01 PM Care Teams Consulting Group Analyst Relationship Specialty Start Date End Date Melvi Chandra MD [address] [place] [address] PCP - General Family Practice 11/10/21 Marilu Murphy MD PhD Radiation Oncologist Radiation Oncology 11/23/19 Shayna Hurd MD Medical Oncologist/District Service Manager Medical Oncology 01/30/20 Laura Bejarano MD PhD Surgeon Surgical Oncology 01/30/20 Serenity Navas MD [address] [place] [address] Bone Health Specialist Bone Health 09/05/20 Eloina Lasren MD [address] [place] [address] Referring Physician Family Medicine 09/19/21
--- OUTSIDE RECORDS SUMMARY | 2024-11-02 08:03 | XMS_ITS | Patient Health Record ---
Author Organization [facility] Address [address] [facility] [facility] [address] [place], [place] [address] Care Team Providers Care Surgical Scheduler Name Role Phone Anayeli Chandra Primary Care Provider Serenity Cummings Unavailable [phone] Eloina Larsen Unavailable Unavailable ALLERGIES No Known Allergies REASON FOR REFERRAL No Information MEDICATIONS Medication SIG (Take, Route, Frequency, Duration) Notes Start Date End Date Status multivitamin Active biotin 5000 mcg 1 tab(s) orally once a day Active Imodium Multi-Symptom Relief Active Effexor XR 75 mg 1 cap(s) orally once a day Active Tylenol Arthritis Caplet Active anastrozole 1 mg 1 tab(s) orally once a day Active predniSONE 2.5 mg 1 tab(s) orally once a day for 30 day(s) 05/16/2020 Not-Taking Prednisone (2day) 5mg Take 6 tablets for 2 days then decrease by one tablet every two days until gone oral qd for 12 days 12/16/2020 Active prednisone (5 mg) 1 mg 4 tabs orally onc e a day for 30 days Not-Taking Synthroid 75 mcg (0.075 mg) 1 tab(s) orally once a day Active Prednisone (2day) 5mg Take 6 tablets for 2 days then decrease by one tablet every two days until gone oral qd for 12 days 12/16/2020 Active SOCIAL HISTORY Sex Assigned At : Social History Observation Description Sex Assigned At Unknown PROBLEMS Problem Type ICD Code Onset Dates Problem Status W/U Status Risk SNOMED Code Notes Problem 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 (Z79.899) Active confirmed 567716326 Problem Polymyalgia rheumatica (M35.3) Active confirmed 42076182 Problem Alopecia (L65.9) Active confirmed 15974 004 Problem Primary generalized (osteo)arthritis (M15.0) Active confirmed 827545122 Problem Misael's thyroiditis (E06.3) Active confirmed 06862187 Problem Fatigue, unspecified type (R53.83) Active confirmed 45975578 Problem Osteopenia, unspecified location (M85.80) Active confirmed 621526619 PLAN OF TREATMENT Pending Test Test Name Order Date Sed Rate - Westergren 08/08/2019 Sed Rate - Westergren 12/11/2020 Rheumatoid Arthritis Factor 07/19/2019 C-Reactive Protein, Quant 08/08/2019 C-Reactive Protein, Quant 12/11/2020 C-Reactive Protein, Quant 07/19/2019 Joint Injection - shoulder, right 2019 X ray : Shoulder, right- outside order 1 -Xray slip given 05/08/2020 PT Evaluate and treat 06/12/2020 PT Evaluate and treat 05/16/2020 Future Test Test Name Order Date Sed Rate - Westergren 07/13/2019 C-Reactive Protein, Quant 07/13/2019 Insurance Providers Payer Name Payer Address Payer Phone Subscriber Number Group Number Insured Name Patient Relationship to Insured Coverage Start Date Coverage End Date MEDICARE [address] [address] [place] [address] [id number] Yoly Price Self - patient is the insured 7 [facility] [id number] [place] [id number] PLAN G Yoly Price Self - patient is the insured 9 MEDICAL (GENERAL) HISTORY Medical History History ICD Code Lichen sclerosis bruises easily depression thyroid disease anxiety swelling of ankles/feet indigestion Lack of bladder control rapid heartbeat irritable bowel syndrome Breast cancer Surgical History Surgery Date(Month/Year) total Right Knee Replacement 02/28 lump removed from left breast 10/2019
--- OUTSIDE RECORDS SUMMARY | 2024-11-02 08:03 | XMS_ITS | Encounter Summary ---
Author Organization [facility] Address [address] [place] [address] Phone Care Team Providers Care Higher Level Teaching Assistant Name Role Phone Suma Guaman MD Primary Care Provider [phone] Eloina Larsen MD Primary Care Provider Marilu Murphy MD PhD Unavailable [phone] Shayna Hurd MD Unavailable [phone] Laura Bejarano MD PhD Unavailable [phone] Serenity Navas MD Unavailable + [phone] Eloina Larsen MD Primary Care Provider Eloina Larsen MD Unavailable [phone] Eloina Larsen MD Primary Care Provider Melvi [...] on file 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 Gender Identity Not on file Sexual [...] on filedocumented in this encounter Care Teams Higher Level Teaching Assistant Relationship Specialty Start Date End Date Suma Guaman MD [address] [address] PCP - General 10/26/11 10/11/19 Eloina Larsen MD [address] [address] PCP - General Family Medicine 10/12/19 12/26/20 Eloina Larsen MD [address] [place] [address] PCP - General Family Medicine 12/27/20 09/18/21 Eloina Larsen MD [address] [place] [address] PCP - General Family Medicine 09/19/21 11/09/21 [place] [address] [place] [address] PCP - General Family Practice 11/10/21 Marilu Murphy MD PhD [address] [address] Radiation Oncologist Radiation Oncology 11/23/19 Shayna Hurd MD [address] [address] Medical Oncologist/Community Outreach Specialist Medical Oncology 01/30/20 Aft, Laura Sullivan MD PhD [address] [address] Surgeon Surgical Oncology 01/30/20 Serenity Navas MD [address] [address] Bone Health Specialist Bone Health 09/05/20 Eloina Larsen MD [address] [place], [place] [id number] Referring Physician Family Medicine 09/19/21 documented as of this encounter
[2024-11-02 08:30] LABS: Hematocrit 40.5 % (37.0-47.0); Hemoglobin 13.1 g/dL (12.0-15.0); Mean Corpuscular HGB Conc 32.3 g/dl (32-36); Mean Corpuscular Hemoglobin 29.2 pg (26-34); Mean Corpuscular Volume 90.2 fl (80-100); Mean Platelet Volume 10.3 fl (7.4-10.4); Platelet Count Result 198 k/mm3 (150-375); Red Blood Count 4.49 M/mm3 (4.2-5.4); Red Cell Distribution Width 12.4 % (11.5-14.5); White Blood Count 5.7 K/mm3 (4.5-10.0)
[2024-11-02 08:49] LABS: Alanine Aminotransferase 14 U/L (6-35); Albumin Level 4.4 g/dL (3.5-5.1); Alkaline Phosphatase 69 U/L (38-126); Anion Gap 8 mmol/L (4-12); Aspartate Amino Transferase 20 U/L (14-36); Bilirubin,Total 0.6 mg/dL (0.2-1.3); Blood Urea Nitrogen 20 mg/dL (7-17); Calcium 9.2 mg/dL (8.4-10.2); Carbon Dioxide 31 mmol/L (22-30); Chloride 102 mmol/L (98-107); Estimated Glomerular Filt Rate > 60; Glucose 103 mg/dL (65-110); Potassium 4.2 mmol/L (3.4-5.0); Sodium 141 mmol/L (137-145)
[2024-11-02 08:50] LABS: Iron 144 ug/dL (37-170)
[2024-11-02 09:00] LABS: Percent Iron Saturation 38 % (20-50)
[2024-11-02 13:43] LABS: Free T4 Free Thyroxine 1.48 ng/dL (0.78-2.19)
== END 2024-11-02 07:56 | disposition home or self-care (01) ==
LOC: ANHLAB 07:58
PROVIDERS: PCP Family Medicine; Visit Provider Internal Medicine
DX: E03.9 Hypothyroidism, unspecified (principal); E78.2 Mixed hyperlipidemia; M85.80 Other specified disorders of bone density and structure, unspecified site; R73.03 Prediabetes; D64.9 Anemia, unspecified
CPT/HCPCS: 36415; 80053; 82306; 82607; 83540; 83550; 84439; 84443; 85027

== ENCOUNTER 2025-04-05 08:35 | Outpatient (CLI) | payer MEDICARE, OTHER, SELFPAY ==
--- OUTSIDE RECORDS SUMMARY | 2009-11-17 19:00 | XMS_ITS | Continuity of Care Document ---
Author Organization [facility] Address [address] [place] [address] [address] [place] [address] Phone Care Team Providers Care Graphic Designer Name Role Phone [facility] Unavailable Unavail able Mallorie Epperson Unavailable Unavailable Procedures Procedure Date Progressive Lens, Polycarb No Charge Glasses Check Progressive Lens, Hi Index No Charge Glasses Check No Charge Glasses Check Advance Directives Directive Yes / No Effective Date File Name No Information Encounters Encounter Description Practice Location Reason(s) For Visit Diagnoses Date Provider Providers Copied on Encounter [facility], [address] [place] [address] [facility] [address], [place], [place], [id number], tel:[phone] [facility] No Information 0-201 0 [facility] . [address] [facility], [facility] [address], [place], [id number], [place]. tel:[phone] Referring Provider: Alex Matthew OD Rubens, [address], [place], [address]. tel:[phone] g Provider: Mallorie Epperson, [address] [facility], [place], [address]. tel:[phone] 8585 [facility], [address], [place], [place], [id number], [place] tel:[phone] [facility] No Information 1-201 0 Matthew RICHARD Johnson. [address] , [address], [place], [address], . tel:[phone] [facility], [address] [facility] [address], [place], [place], [id number], [place] tel:[phone] [facility] No Information 6-200 9 [facility] . [address] [facility], [address], [place], [place], [id number], [place]. tel:[phone] Referring Provider: Alex Matthew OD A, [address], [place], [address]. tel:[phone] g Provider: Mallorie Epperson, [address] [place], [address]. tel:[phone] [facility], [address], [place], [place], [id number], [place] tel:[phone] [facility] No Information 9-200 9 Matthew OD Alex. [address] , [address], [place], [address], [place]. tel:[phone] [facility], [id number] [place] [address] [address], [place], [place], [id number], [place] tel:[phone] [facility] No Information 2-200 8 Matthew OD Alex. [address] , [address], [place], [address], [place]. tel:[phone] Family History Family Member Type Diagnosis Age At Onset No Information Payers Payer name Insurance type Covered republican ID Authoriza tion(s) No Information Social History Type Description Quantity Date Captured Comments Sex Female Smoking Status No Information Chief Complaint And Reason For Visit No Information Reason For Referral Reason For Referral No Information History Of Present Illness Encounter Date Complaint History Of Prese nt Illness No Information Functional Status Date Functional Assessmen t No Information Instructions Date Instruction Additional Infor mation No Information Assessments Type Assessment Date No Information Patient Care Teams Name Effective Dates (start - stop) Status Members No Information
--- OUTSIDE RECORDS SUMMARY | 2025-04-05 08:39 | XMS_ITS | Clinical Summary ---
Author Organization [facility] [employer] Address [address] [place] [address] Care Team Providers Care Electrical Electronics Engineer Name Role Phone Jerman Knox MD Unavailable Al Wharton MD Unavailable [phone] Source Comments [facility] [employer],non-owned Affiliates and Associated Physician Practices is amultiple site organization consisting of ambulatory clinics and hospital sitesin [place], [place], [place] and [place]. This disclosure is being madepursuant to the Care Everywhere program and may not contain all information available regarding this patient. Last updated 18.[facility] [employer] Allergies No known active allergies Medications * [...] Medical History Relation Name Comments Cancer Mother Plug Stitcher Heart Disease Other Pacemaker Other Relation Name [...] 10:37 AM CDT Height 170.2 cm (5' 7) 12/11/2015 10:37 AM CDT Body Mass Index 21.83 12/11/2015 10:37 AM CDT Plan of Treatment Health Maintenance Due Date Last Done Comments BONE DENSITY TESTING 1940 DTAP/TDAP/TD VACCINES (1 - Tdap) 1961 PNEUMOCOCCAL VACCINE 50+ (1 of 1 - PCV) 1992 ZOSTER VACCINE (1 of 2) 1992 Respiratory Syncytial Virus (RSV) Vaccine Pt: or over 60 yrs (1 - 1-dose 75+ series) 2017 DEPRESSION SCREENING 07/12/2024 COVID-19 VACCINE (1 - 2023-2 5 season) 2025 INFLUENZA VACCINE (#1) 2025 04/30/2020 HEPATITIS B VACCINE Aged Out No longe [...] this topic Medical Devices Implanted Type Area Quarter Seamer Device Identifier Shelf Expiration Date Model / Serial / Lot Marco Bone [place] Hv Implanted:Qty: 1 on 02/28/2015 by Jerman Knox MD at [facility] Right: [employer] 10/09/2016 [id number] / / [id number] Ty Tibial I Beam Fix Bar 71mm Implanted:Qty: 1 on 02/28/2015 by Jerman Knox MD at [facility] Right: [employer]nee [employer] 01/08/2025 [id number] / / [id number] Butn Pat Arcom Wire Polyeth Xsm 28 X 8 Implanted:Qty: 1 on 02/28/2015 by Jerman Knox MD at [facility] Right: Knee [employer] 12/23/2019 [id number] / / [id number] Ins Kn Vangurd Fem Cocr R-Intlok 65.0mm Implanted:Qty: 1 on 02/28/2015 by Jerman Knox MD at [facility] Right: Knee [employer] 01/08/2025 [id number] / / [id number] Brdg Tib Savannah Stbl Implanted:Qty: 1 on 02/28/2015 by Jerman Knox MD at [facility] Right: Knee [employer] 12/22/2019 [id number] / / [id number] Insurance MEDICARE [facility] MEDICARE [facility] [place] [address] Advance Directives Documents on File Type Date Recorded 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
--- OUTSIDE RECORDS SUMMARY | 2025-04-05 08:39 | XMS_ITS | Patient Health Record ---
Author Organization [employer] Address [address] 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 (Z79.899) Active confirmed 513760311 Problem Polymyalgia rheumatica (M35.3) Active confirmed 02284224 Problem Alopecia (L65.9) Active confirmed 35591 004 Problem Primary generalized (osteo)arthritis (M15.0) Active confirmed 170268101 Problem Misael's thyroiditis (E06.3) Active confirmed 84436903 Problem Fatigue, unspecified type (R53.83) Active confirmed 07214867 Problem Osteopenia, unspecified location (M85.80) Active confirmed 440732665 PLAN OF TREATMENT Pending Test Test Name Order Date Sed Rate - Westergren 12/11/2020 Sed Rate - Westergren 08/08/2019 Rheumatoid Arthritis Factor 07/19/2019 C-Reactive Protein, Quant [...] Date Coverage End Date MEDICARE [address] [address] [place] [address] [id number] Yoly Price Self - patient is the insured 7 [employer] [place] [facility] [address] [place] [address] [id number] PLAN G Yoly Price Self - patient [...]
--- OUTSIDE RECORDS SUMMARY | 2025-04-05 08:39 | XMS_ITS | Clinical Summary ---
Author Organization [facility] Address [address] [place] [address] Care Team Providers Care Cushion Installer Name Role Phone Unavailable Primary Care Provider [...] 11:43 AM CDT Height 170.2 cm (5' 7) 12/04/2016 11:43 AM CDT Body Mass Index 22.55 12/04/2016 11:43 AM CDT Plan of Treatment Health Maintenance Due Date Last Done Comments Dexa Scan (General) 2007 Pneumococcal Vaccine: 50+ Ye ars (2 of 2 - PCV) 07/12/2008 07/12/2007 Zoster Vaccines (2 of 3) 09/06/2012 07/12/2012 RSV Immunization or 60+ Years (1 - 1-dose 75+ series) 2017 COVID-19 Vaccine ( - 2023-2 5 season) 2025 DTaP, Tdap and Td Vaccines ( 2 - Td or Tdap) 09/08/2025 09/09/2015 Meningococcal B Vaccine Aged Out No l onger eligible based on patient's age to complete this topic Meningococcal Vaccine Aged Out No oracio erna eligible based on patient's age to complete this topic RSV Immunizations Under 20 Months Aged Out No longer eligible based on patient's age to complete this topic
--- OUTSIDE RECORDS SUMMARY | 2025-04-05 08:39 | XMS_ITS ---
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 Past Treatment and Therapy Plans No past plan information found. Radiation Treatments * Course C1 L BREAST 201912/26/2019 - 01/24/2020 Treatment Period Energy Fraction Dose Fractions Total Dose Plans Planned LUOQ [facility] 01/18/2020 - 01/24/2020 300 5 / 1,500 L BREAST 12/26/2019 - 01/17/2020 266 16 / 4,256 Reference Points Delivered [facility] DPV 01/18/2020 - 01/24/2020 1,500 [facility] DPV 12/26/2019 - 01/17/2020 4,256 Lifetime Dose Tracking * Chemical Lifetime Dose Automatic Entry Manual Entr y Fluoro Time 0.4 minutes 0.4 minutes 0 minutes Air kerma at the reference point (Ka,r) 2 mGy 2 mGy 0 mGy
--- OUTSIDE RECORDS SUMMARY | 2025-04-05 08:39 | XMS_ITS | Encounter Summary ---
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 Gender Identity Not on file Sexual Orientation Straight 11/21/2019 11 :27 AM CDT documented as of this encounter Plan of Treatment Not on file documented as of this encounter Procedures Procedure Name Priority Date/Time Associated Diagnosis Comments SCAN - LABS 04/05/2020 documented in this encounter Results * SCAN - LABS (04/05/2020) us Provider Scanning Final Result documented in this encounter Visit Diagnoses Not on filedocumented in this encounter Care Teams Patient Ambassador Relationship Specialty Start Date End Date Eloina Larsen MD PCP - General Family Medicine 10/12/19 12/26/20 [place] [address] [place] [address] PCP - General Family Medicine 12/27/20 09/18/21 [place] [address] [place] [address] PCP - General Family Medicine 09/19/21 11/09/21 [place] [address] [place] [id number] PCP - General Family Practice 11/10/21 Marilu Murphy MD PhD Radiation Oncologist Radiation Oncology 11/23/19 Shayna Hurd MD Medical Oncologist/Travertine Installer Medical Oncology 01/30/20 Laura Bejarano MD PhD Surgeon Surgical Oncology 01/30/20 Serenity Navas MD [address] [place] [address] Bone Health Specialist Bone Health 09/05/20 Eloina Larsen MD [address] [place] [address] Referring Physician Family Medicine 09/19/21 documented as of this encounter
--- OUTSIDE RECORDS SUMMARY | 2025-04-05 08:39 | XMS_ITS | Encounter Summary ---
Author Organization [facility] Address [address] [place] [address] Phone Care Team Providers Care Ed Teacher Name Role Phone Suma Guaman MD Primary Care Provider [phone] Eloina Larsen MD Primary Care Provider Marilu Murphy MD PhD Unavailable Shayna Hurd MD Unavailable [phone] Laura Bejarano MD PhD Unavailable [phone] Serenity Navas MD Unavailable [phone] Eloina Larsen MD Primary Care Provider Eloina Larsen MD Unavailable [phone] Eloina Larsen MD Primary Care Provider Melvi [...] on file 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 Gender Identity Not on file Sexual Orientation [...] on filedocumented in this encounter Care Teams Ed Teacher Relationship Specialty Start Date End Date Suma Guaman MD [address] [address] PCP - General 10/26/11 10/11/19 Eloina Larsen MD [address] [address] PCP - General Family Medicine 10/12/19 12/26/20 [place] [address] [place] [address] PCP - General Family Medicine 12/27/20 09/18/21 Eloina Larsen MD [address] [place] [address] PCP - General Family Medicine 09/19/21 11/09/21 [place] [address] [place] [address] PCP - General Family Practice 11/10/21 Marilu Murphy MD PhD [address] [address] Radiation Oncologist Radiation Oncology 11/23/19 Shayna Hurd MD [address] [address] Medical Oncologist/Eligibility Examiner Medical Oncology 01/30/20 Aft, Laura Sullivan MD PhD [address] [address] Surgeon Surgical Oncology 01/30/20 Serenity Navas MD [address] [id number] Bone Health Specialist Bone Health 09/05/20 Eloina Larsen MD [address] [place], [place] [address] Referring Physician Family Medicine 09/19/21 documented as of this encounter
--- OUTSIDE RECORDS SUMMARY | 2025-04-05 08:39 | XMS_ITS | Clinical Summary ---
Author Organization [facility] Address [facility] [place] [address] Care Team Providers Care Health And Wellness Advisor Name Role Phone Marilu Murphy MD PhD Unavailable [phone] Shayna Hurd MD Unavailable [phone] Presleyt, Laura Sullivan MD PhD Unavailable [phone] Serenity Navas MD Unavailable [phone] Eloina Larsen MD Unavailable [phone] Melvi Chandra MD Primary Care Provider Allergies [...] 1 tablet (100 mcg total) by mouth aws architect before breakfast 3 Active betamethasone dipropionate (DIPROSONE) 0.05 % ointment Apply topically 2 (two) times a day Active venlafaxine XR (EFFEXOR-XR) 75 mg 24 hr capsule 1 capsule (75 mg total) Active Active Problems Problem Noted Date Diagnosed [...] neoplasm 01/30/2020 Personal history of irradiation 01/30/2020 prison current use of aromatase inhibitor History of breast cancer 11/14/2019 Malignant neoplasm of upper- outer quadrant of left breast in female, estrogen receptor positive 10/23/2019 Cancer Staging:Pathologic:Stage IB(pT2, pN0, cM0, G3, ER+, MS+, HER2-) - Signed by Sabine Sweet MD on 11/23/2019 Immunizations Immunization Administration Dates Next Due Influenza, Quadrivalent, Hig h Dose, Preservative Free, Intrr 04/30/2020 Influenza, Trivalent, Adjuva nted, Intramuscular 04/22/2017 Influenza, [...] on file Legal Sex Female 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 Gender Identity Not on file Sexual Orientation Straight 11/21/2019 11 :27 AM CDT Obstetrics History Last Filed Vital Signs Vital Sign Reading Time Taken Comments Blood Pressure 151/60 09/13/2024 10:20 AM EDITOR INDEX Pulse 70 09/13/2024 10:20 AM EDITOR INDEX Temperature 36.9 C (98.4 F) 09/13/2024 9:40 AM EDITOR INDEX Respiratory Rate 12 09/13/2024 10:20 AM EDITOR INDEX Oxygen Saturation 100% 09/13/2024 10:20 AM EDITOR INDEX Inhaled Oxygen Concentration - - Weight 68 kg (149 lb 14.4 oz) 12/18/2024 9:29 AM CDT Height 170.2 cm (5' 7) 12/18/2024 9:29 AM CDT Body Mass Index 23.48 12/18/2024 9:29 AM CDT Plan of Treatment Health Maintenance Due Date Last Done Comments Depression Screening 1940 Hepatitis B Screening 1960 Well Visit 65+ 2007 Zoster Vaccine (2 of 3) 04/03/2013 02/06/2013, 07/12 Covid-19 Vaccine (2024-2 6 season) 2025 05/17/2021, 09/14/2020, 08/24/2020 Influenza Vaccine (#1) 2025 , 04/22/2017, 04/18/2016, Additional history exists DTaP/Tdap/Td Vaccine (2 - Td or Tdap) 09/08/2025 09/09/2015 Fall Risk Assessment 09/13/2025 09/13/2024 Osteoporosis Screening-Bone Density Scan 10/20/2026 10/20/2024, 09/09/2022, 08/23/2020 Pneumococcal vaccine 65+ Completed 05/02/2008, 07/2007 Medical Devices Implanted Type Area Service Bar Cashier Device Identifier Shelf Expiration Date Model / Serial / Lot Rt Total Knee Arthroplasty Knee Procedures Procedure Name Priority Date/Time Associated Diagnosis Comments DEXA AXIAL SKELETON BONE DENSITY 1 OR MORE SITES Schedule Routine, Read Routine (OP Routine) 10/20/2024 9:07 AM CDT Malignant neoplasm of upper-outer quadrant of left breast in female, estrogen receptor positive (HCC) from Last 3 Months or Most Recently Relevant to Health Maintenance Results * Dexa Axial Skeleton Bone Density 1 or 2 Site (10/20/2024 9:07 AM CDT) Anatomical Region Laterality Modality Body N/A Radiographic Josefina ging Narrative 10/20/2024 1:08 PM CDT Patient Name: Yoly Price Date of : 1940 Date of scan: 10/20/2024 Bone mineral density was performed on a Chalkfly Discovery Densitometer. Based on machine cross-calibration and [...] by the International Society of Clinical Densitometry. [id number] Shayna Hurd MD [facility] DXA PROCEDURES F inal Result from Last 3 Months or Most Recently Relevant to Health Maintenance [place] [address] MEDICARE [facility] Address: [facility] [address] [place] [address] [facility] MEDICARE [facility] MEDICARE [facility] [place] [id number] Advance Directives For more information, please contact: [phone] Documents on File Type Date Recorded Patient Sharepoint Solutions Developer Expl anation ADVANCE DIRECTIVE 11/07/2019 11:43 AM Kaveh r of Department Mgr-Medical * Full Code (Latest Code Status on File) Date Activated Date Inactivated Comments 03/22/2020 9:07 AM 03/22/2020 2:15 PM * Full Code Date Activated Date Inactivated Comments 03/12/2020 2:34 PM 03/12/2020 8:01 PM Care Teams Health And Wellness Advisor Relationship Specialty Start Date End Date Melvi Chandra MD [address] [facility] [address] [place] [address] PCP - General Family Practice 11/10/21 Marilu Murphy MD PhD Radiation Oncologist Radiation Oncology 11/23/19 Shayna Hurd MD Medical Oncologist/Senior Windows Administrator Medical Oncology 01/30/20 Laura Bejarano MD PhD Surgeon Surgical Oncology 01/30/20 Serenity Navas MD [address] [facility] [address] [place] [address] Bone Health Specialist Bone Health 09/05/20 Eloina Larsen MD [address] [place] [address] Referring Physician Family Medicine 09/19/21
--- OUTSIDE RECORDS SUMMARY | 2025-04-05 08:39 | XMS_ITS | Encounter Summary ---
Author Organization [facility] Address [address] [facility] [place] [place] [address] Care Team Providers Care Surface Grinding Machine Hand Name Role Phone Suma Guaman MD Primary Care Provider [phone] Jerman Knox MD Unavailable Al Wharton MD Unavailable [phone] Encounter Details Date Type Department Care Team (Late st Contact Info) Description 03/20/2015 Therapy Visit [facility] Orthopedics [address] [facility] [address] [place] [address] [place] [address] [address] Social History Tobacco Use Types [...] on filedocumented in this encounter Care Teams Surface Grinding Machine Hand Relationship Specialty Start Date End Date Suma Guaman MD [address] [place] [address] PCP - General Family Medicine 12/31/14 11/12/15 [place] [address] [place] [address] Orthopedic Surgery 02/04/15 [place] [address] [place], [place] [id number] Orthopedic Surgery 12/06/15 documented as of this encounter
[2025-04-05 09:15] LABS: Hematocrit 40.9 % (37.0-47.0); Hemoglobin 12.9 g/dL (12.0-15.0); Immature Granulocyte Percent A 0.5 % (0-0.5); Lymphocytes Absolute Auto 1.22 K/mm3 (0.9-3.2); Mean Corpuscular HGB Conc 31.5 g/dl (32-36); Mean Corpuscular Hemoglobin 28.8 pg (26-34); Mean Corpuscular Volume 91.3 fl (80-100); Nucleated Red Blood Cells Absolute Auto 0.000 K/mm3 (0.0-0.012); Nucleated Red Blood Cells Perc 0.0 % (0.0-0.2); Platelet Count Result 199 k/mm3 (150-375); Red Blood Count 4.48 M/mm3 (4.2-5.4); White Blood Count 6.1 K/mm3 (4.5-10.0)
[2025-04-05 09:25] LABS: Hemoglobin A1C 5.8 % (<5.7)
[2025-04-05 09:41] LABS: Alanine Aminotransferase 17 U/L (6-35); Albumin Level 4.2 g/dL (3.5-5.1); Alkaline Phosphatase 71 U/L (38-126); Anion Gap 4 mmol/L (4-12); Aspartate Amino Transferase 23 U/L (14-36); Bilirubin,Total 0.5 mg/dL (0.2-1.3); Blood Urea Nitrogen 17 mg/dL (7-17); CRP 1.0 mg/dL (<1.0); Calcium 9.1 mg/dL (8.4-10.2); Carbon Dioxide 32 mmol/L (22-30); Chloride 102 mmol/L (98-107); Cholesterol 213 mg/dL (0-200); Estimated Glomerular Filt Rate > 60; Glucose 100 mg/dL (65-110); HDL Direct 86 mg/dL; Potassium 4.3 mmol/L (3.4-5.0); Sodium 138 mmol/L (137-145); Total Protein 7.5 g/dL (6.3-8.2); Triglycerides 78 mg/dL (<150)
[2025-04-05 09:56] LABS: Free T4 Free Thyroxine 0.96 ng/dL (0.78-2.19)
[2025-04-05 10:14] LABS: Thyroid Stimulating Hormone 4.470 uIU/mL (0.465-4.680)
[2025-04-05 10:33] LABS: Vitamin B12 691.0 pg/mL (239-931)
== END 2025-04-05 08:36 | disposition home or self-care (01) ==
LOC: ANHLAB 08:37
PROVIDERS: PCP Family Medicine; Visit Provider Family Medicine
DX: E78.5 Hyperlipidemia, unspecified (principal); I10 Essential (primary) hypertension; E03.9 Hypothyroidism, unspecified; M25.541 Pain in joints of right hand; M25.542 Pain in joints of left hand; M35.3 Polymyalgia rheumatica; Z00.00 Encounter for general adult medical examination without abnormal findings; R73.03 Prediabetes; E53.8 Deficiency of other specified B group vitamins; E55.9 Vitamin D deficiency, unspecified
CPT/HCPCS: 36415; 80053; 80061; 82306; 82607; 83036; 84439; 84443; 85025; 85652; 86140